=== PATIENT | male | born 1975 | race Two or more races ===

== ENCOUNTER 2020-06-03 09:38 | Outpatient (REF) | payer OTHER, SELFPAY ==
[2020-06-03 10:30] LABS: COVID-19 Test Negative (Negative)
== END 2020-06-03 09:39 | disposition home or self-care (01) ==
LOC: HO.LAB 09:38
PROVIDERS: PCP Nurse Practitioner Family; Visit Provider Internal Medicine
DX: Z20.828 Contact with and (suspected) exposure to other viral communicable diseases (principal)
CPT/HCPCS: 87635; C9803

== ENCOUNTER → 2020-07-21 09:09 | Outpatient (BNVA) | payer OTHER, SELFPAY | PROVIDERS: PCP Nurse Practitioner Family; Referring Provider Nurse Practitioner Family; Visit Provider Psychiatry & Neurology Neurology | DX: Z76.89 Persons encountering health services in other specified circumstances (principal) ==

== ENCOUNTER → 2020-08-18 09:49 | Outpatient (BNVA) | payer OTHER, SELFPAY | PROVIDERS: PCP Nurse Practitioner Family; Visit Provider Internal Medicine ==

== ENCOUNTER 2020-08-31 13:11 | Outpatient (REF) | payer OTHER, SELFPAY ==
--- NOTE | ~2020-08-31 | CT_ITS ---
EXAMINATION: CT CHEST WITHOUT CONTRAST CLINICAL INFORMATION: Sarcoidosis COMPARISON: Previous chest CT December 2018 TECHNIQUE: Multidetector volumetric CT imaging of the chest was done. Axial MIP volume rendering provided. Sagittal and coronal reformatted images were obtained. This CT examination was performed using dose optimization techniques as appropriate, variously including the following: *Automated exposure control *Adjustment of mA and/or kV according to patient size (this includes techniques or standardized protocols for targeted exams where dose is matched to indication/reason for exam; i.e. 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 Largest pulmonary nodule is irregularly-shaped in the left upper lobe and measures 1.6 x 3 cm axial image 282 series 7 and 6 cm in longitudinal dimension coronal reconstructed image 43 compared to 1.4 x 2.4 x 5 cm May 2019 exam. MEDIASTINUM: There is mediastinal and bilateral hilar lymphadenopathy. This does not appear appreciably changed. Largest mediastinal lymph node is a right pretracheal lymph node measuring 1.6 x 2 cm, right precarinal lymph node measuring 1.3 x 2.2 cm and subcarinal lymph node measuring 1.6 x 3 cm. The heart does not appear enlarged. There is no pericardial effusion. There is no coronary artery calcification. The thoracic aorta is normal in caliber. The visualized thyroid gland is unremarkable. PLEURA: There is no pleural effusion. No pleural mass or thickening. AXILLA: No lymphadenopathy. UPPER ABDOMEN: There is a large left renal cyst that is partially visualized measuring at least 7.7 x 9 cm OSSEOUS STRUCTURES: Unremarkable. CT/CT chest wo con IMPRESSION: Interval increase in size and number of bilateral pulmonary nodules. Diffuse hilar and mediastinal lymphadenopathy not appreciably changed. Largest left renal cyst.
== END 2020-08-31 13:12 | disposition home or self-care (01) ==
LOC: HO.CT 13:11
PROVIDERS: PCP Nurse Practitioner Family; Visit Provider Internal Medicine
DX: D86.9 Sarcoidosis, unspecified (principal); R59.0 Localized enlarged lymph nodes
CPT/HCPCS: 71250

== ENCOUNTER 2020-10-07 07:33 | Outpatient (REF) | payer OTHER, SELFPAY ==
[2020-10-07 08:45] LABS: MANUAL DIFF FLAG NO
[2020-10-07 08:52] LABS: Basophils Percent Auto 0.3 % (0-2); Eosinophils Absolute Auto 1.2 X10*3/uL (0.0-0.4); Eosinophils Percent Auto 15.3 % (0-4); Hematocrit 46.6 % (42-52); Hemoglobin 15.6 g/dl (14.0-18.0); Imm Gran Abs Auto 0.05 X10*3/uL (0.00-0.03); Imm Gran Pct Auto 0.6 % (0.0-0.4); Lymphocytes Absolute Auto 2.4 X10*3/uL (1.2-4.9); Lymphocytes Percent Auto 30.2 % (20-40); Mean Corpuscular HGB Conc 33.5 g/dl (31.0-36.0); Mean Corpuscular Hemoglobin 30.9 pg (27.0-33.0); Mean Corpuscular Volume 92.3 fL (80-98); Mean Platelet Volume 9.5 fL (9.4-12.4); Monocytes Absolute Auto 0.8 X10*3/uL (0.1-1.2); Monocytes Percent Auto 9.6 % (2-11); Neutrophils Absolute Auto 3.5 X10*3/uL (2.0-8.3); Platelet Count 250 X10*3/uL (160-400); Red Blood Count 5.05 X10*6/uL (4.60-5.80); Red Cell Distribution Width 12.1 % (11.0-16.0); White Blood Count 7.9 X10*3/uL (4.8-10.8)
[2020-10-07 09:11] LABS: Alanine Aminotransferase 53 U/L (0-40); Albumin Level 4.5 g/dL (3.5-5.0); Alkaline Phosphatase 58 U/L (39-117); Anion Gap 15 (12-20); Aspartate Amino Transferase 35 U/L (5-37); Bilirubin Total 0.6 mg/dL (0.0-1.0); Blood Urea Nitrogen 19 mg/dL (9-16); Calcium 9.6 mg/dL (8.4-10.2); Carbon Dioxide 26 mmol/L (22-29); Chloride 106 mmol/L (96-108); Estimated Glomerular Filt Rate > 60; Glucose Random 77 mg/dL (60-115); Potassium 4.6 mmol/L (3.3-5.1); Sodium 142 mmol/L (135-145); Total Protein 7.8 g/dL (6.5-8.0)
== END 2020-10-07 07:34 | disposition home or self-care (01) ==
LOC: HO.LAB 07:33
PROVIDERS: PCP Nurse Practitioner Family; Visit Provider Nurse Practitioner Family
DX: L30.9 Dermatitis, unspecified (principal)
CPT/HCPCS: 36415; 80053; 85025

== ENCOUNTER 2020-12-28 14:22 | Emergency (ER) | payer OTHER, SELFPAY ==
--- NOTE | ~2020-12-28 | CT_ITS ---
EXAMINATION: CT ABDOMEN AND PELVIS WITH CONTRAST CLINICAL INFORMATION: Left flank/lower abdominal pain COMPARISON: CT chest 08/31/2020 Renal ultrasound 02/20/2020, CT abdomen pelvis 11/09/2017 TECHNIQUE: Multidetector volumetric images were obtained from the superior aspect of the liver through the pubic symphysis following administration 85 mL of Omnipaque 350 intravenous contrast. Sagittal and coronal reformatted images were obtained on the technologist's workstation. Oral contrast: No This CT examination was performed using dose optimization techniques as appropriate, variously including the following: *Automated exposure control *Adjustment of mA and/or kV according to patient size (this includes techniques or standardized protocols for targeted exams where dose is matched to indication/reason for exam; i.e. extremities or head) *Use of iterative reconstruction technique DLP: 594 mGy-cm FINDINGS: LUNG BASES: Some noia-ok-oie-type changes are present at the lung bases (4:2). Some small nodules are present at the right lung base the largest 5 mm (4:107). A lingular 8 mm pleural-based nodule is present (4:53). When compared to the 08/31/2020 study there's been no significant interval change. LIVER, GALLBLADDER, AND BILIARY TREE: The liver is normal in size, shape, and attenuation. Tiny barely perceptible hepatic hypodensities are seen, most likely cysts, but indeterminate. Hypoechoic region adjacent to the falciform ligament is not a worrisome finding. No suspicious focal hepatic lesion or biliary ductal dilatation is present. The gallbladder is unremarkable with no evidence of radiopaque gallstones, gallbladder wall thickening, or obvious pericholecystic inflammatory changes. PANCREAS: Unremarkable. SPLEEN: Unremarkable. ADRENAL GLANDS: Unremarkable. KIDNEYS AND URETERS: The kidneys are normal in size, shape, and attenuation. No hydronephrosis or hydroureter. Previously seen obstructing the left proximal ureteral stone is no longer present. Bilateral nonobstructing renal calculi are present. There are 4 on the right with the largest measuring 5 mm in size. On the left, 2 adjacent 2 mm calculi are seen. Again noted are bilateral renal cysts which have increased in size with the largest on the right measuring 2.7 cm. No perinephric stranding. BLADDER: Unremarkable. GASTROINTESTINAL TRACT: There are moderately extensive colonic diverticula without diverticulitis. The small and large bowel are otherwise unremarkable. The appendix is unremarkable. ABDOMINAL WALL: No significant hernia is appreciated. LYMPH NODES: Retroperitoneal lymphadenopathy is seen with the largest node in the left para-aortic region measuring 2.3 x 2.0 x 4.4 cm (4:298). In 2018, this node measured 1.1 x 1.0 cm. Other lymph nodes are also present including aortocaval nodes and iesha hepatis, gastrohepatic ligament and periceliac lymph nodes which have also increased in size. VASCULAR: Unremarkable. PELVIC VISCERA: A statement seminal vesicles unremarkable. OSSEOUS STRUCTURES: Unremarkable. CT/CT abdomen pelvis w con IMPRESSION: 1. Stable pulmonary nodules. 2. Bilateral nonobstructing renal calculi and renal cysts. 3. Increasing retroperitoneal lymphadenopathy 4. Colonic diverticular changes without diverticulitis 5. An acute cause for the patient's left flank/lower abdominal pain has not been found.
[2020-12-28 14:24] VITALS: BP 155/102; PULSE 79; RESP 18; TEMP 36.6; O2SAT 99; BMI 28.0
--- NOTE | 2020-12-28 15:23 | ED.ABDPAIN ---
HPI - Abdominal Pain General Chief Complaint: Abdominal Pain Stated Complaint: kidney stones Time Seen by Provider: 12/28/20 15:14 Source: patient Mode of arrival: ambulatory Limitations: no limitations History of Present Illness HPI narrative: Min patient presents to the for left lower abdominal left flank pain since last night. Patient states history of multiple kidney stones. Patient was sent by his urologist to be evaluated. Patient denies any dysuria, hematuria, testicular pain, nausea, or vomiting. Patient states no fever or chills. patient denies any recent trauma MD elicited complaint: abdominal pain Related Data Home Medications Medication Instructions Recorded Confirmed pyridoxine (vitamin B6) 100 mg 100 mg PO DAILY 05/26/20 12/28/20 tablet flu vac qs 2018(4 yr up)CD(PF) ml IM 08/18/20 12/08/20 hepatitis A virus vaccine (PF) 50 ml IM ONCE 08/18/20 12/08/20 unit/mL intramuscular syringe fexofenadine 60 mg tablet 60 mg PO BID 12/08/20 12/28/20 glucosamine-chondroitin 500 mg-400 1 tab PO DAILY 12/28/20 12/28/20 mg tablet ipratropium bromide 21 mcg (0.03 INTRANASAL 12/28/20 12/28/20 %) nasal spray Previous Rx's Medication Instructions Recorded zolpidem 10 mg tablet 10 mg PO BEDTIME 30 Days #30 tab 10/12/20 omeprazole 20 mg capsule,delayed 20 mg PO DAILY #30 cap 11/05/20 release potassium citrate 10 mEq (1,080 20 meq PO BID 90 Days #360 tab 11/09/20 mg) tablet,extended release ibuprofen 600 mg tablet 600 mg PO TID #90 tab 12/28/20 naproxen 500 mg PO BID PRN #20 tab 12/28/20 tamsulosin [Flomax] 0.4 mg PO DAILY 7 Days #7 cap 12/28/20 Allergies Allergy/AdvReac Type Severity Reaction Status Date / Time morphine [MORPHINE] AdvReac Intermediate NAUSEA & Verified 12/28/20 13:02 VOMITING, Vomiting, nausea Review of Systems Review of Systems Yes all other systems are reviewed and are negative Constitutional: Reports as per HPI and Reports no additional constitutional complaints Eyes: Reports as per HPI and Reports no additional eye complaints Reports system reviewed and no additional complaints, except as documented and Reports as per HPI Cardiovascular: Reports as per HPI and Reports no additional cardiovascular complaints Respiratory: Reports as per HPI and Reports no additional respiratory complaints Gastrointestinal: Reports as per HPI, Reports no additional gastrointestinal complaints and Reports abdominal pain (Left flank left lower abdominal pain) Genitourinary: Reports no additional male genitourinary complaints and Reports as per HPI Musculoskeletal: Reports no additional musculoskeletal complaints and Reports as per HPI Reports system reviewed and no additional complaints, except as documented and Reports as per HPI Psychiatric: Reports no additional psychiatric complaints and Reports as per HPI Physical Exam Vital Signs: Vital Signs: Last Vital Signs Temp 98.2 F 12/28/20 19:24 Pulse 62 12/28/20 19:24 Resp 18 12/28/20 19:24 BP 125/70 12/28/20 19:24 Pulse Ox 98 12/28/20 19:24 Body Mass Index 28.0 Const: General: cooperative, healthy appearing, comfortable, no acute distress, well developed, alert, awake and Physically active Orientation/consciousness: patient oriented x3 HENMT: Head: Yes normal to inspection, Yes No palpable skull fracture present, Yes normocephalic, Yes atraumatic and No abrasion Eyes: General: appearance normal, both eyes and all related structures Neck: Neck: Yes normal visual inspection, Yes full ROM, Yes no lymphadenopathy, Yes no meningeal signs, Yes trachea midline, Yes supple and No tender Chest: Chest palpation & inspection: normal inspection of the chest and abnormal palpation of chest wall Resp: Effort & Inspection: normal respiratory effort and able to speak in complete sentences Auscultation: clear to auscultation bilaterally Cardio: Jugular venous distension: no JVD Heart sounds: S1 normal heart sound present and S2 normal heart sound present GI: Inspection: Yes normal to inspection Palpation (GI): Soft to palpation, not firm, Tenderness to palpation present (GI) in the LLQ, no guarding and not rigid : General: No CVA tenderness and Yes no CVA tenderness Back/Spine/Pelvis: Back: no CVA tenderness, No CVA tenderness and No back tenderness Skin: General skin exam: no rashes or lesions noted and elasticity normal Neuro: General: patient oriented x3, gait normal, no meningeal signs and CN's II-XI intact bilaterally Cranial nerves: Yes CN's II-XII intact bilaterally Extrem: General: Yes normal to inspection and Yes full ROM Psych: Appearance: grossly normal, well kempt and not disheveled Course Course Course Narrative: Patient will have labs, IV fluids, Toradol, and possibly imaging done. Reevaluation(s) Reevaluation #1: CT scan came back for bilateral stones and were negative for ureteral stones. Negative for any acute abdominal etiology. Patient labs are baseline. Patient pain resolved with Toradol. UA negative for UTI. Patient made aware of CT scan of renal cyst and increaseds size retroperitoneal lymphadenopathy. Patient informed to follow-up with PCP. Time: 18:54 MDM - Abdominal Pain MDM Narrative Medical decision making narrative: Kidney stones. Lab Data Result diagrams: 12/28/20 15:41 12/28/20 15:41 Labs: Lab Results 12/28/20 12/28/20 12/28/20 Range/Units 15:41 15:41 15:41 WBC 5.1 (4.8-10.8) X10*3/uL RBC 4.78 (4.60-5.80) X10*6/uL Hgb 15.0 (14.0-18.0) g/dl Hct 44.3 (42-52) % MCV 92.7 (80-98) fL MCH 31.4 (27.0-33.0) pg MCHC 33.9 (31.0-36.0) g/dl RDW 11.9 (11.0-16.0) % Plt Count 194 (160-400) X10*3/uL MPV 9.1 L (9.4-12.4) fL Immature Gran % (Auto) 0.8 H (0.0-0.4) % Neut % (Auto) 51.3 (45-73) % Lymph % (Auto) 25.4 (20-40) % [place] % (Auto) 15.3 H (2-11) % Eos % (Auto) 6.8 H (0-4) % Baso % (Auto) 0.4 (0-2) % Lymph # (Auto) 1.3 (1.2-4.9) X10*3/uL [place] # (Auto) 0.8 (0.1-1.2) X10*3/uL Eos # (Auto) 0.4 (0.0-0.4) X10*3/uL Baso # (Auto) 0.0 (0.0-0.2) X10*3/uL Abs Immat Gran (auto) 0.04 H (0.00-0.03) X10*3/uL Absolute Neuts (auto) 2.6 (2.0-8.3) X10*3/uL Absolute Nucleated RBC 0.000 (0.0-0.012) X10*3/uL Nucleated RBC % (auto) 0.0 (0.0-0.2) /100WBC Sodium 141 (135-145) mmol/L Potassium 4.0 (3.3-5.1) mmol/L Chloride 106 (96-108) mmol/L Carbon Dioxide 27 (22-29) mmol/L Anion Gap 12 (12-20) BUN 9 D (9-16) mg/dL Creatinine 1.21 (0.5-1.4) mg/dL Estim Creat Clear Calc 85.6 Estimated GFR > 60 Random Glucose 80 (60-115) mg/dL Calcium 9.2 (8.4-10.2) mg/dL Total Bilirubin 0.6 0.6 (0.0-1.0) mg/dL Direct Bilirubin 0.2 (0.0-0.5) mg/dL AST 29 29 (5-37) U/L ALT 25 25 (0-40) U/L Alkaline Phosphatase 55 55 (39-117) U/L Total Protein 7.1 7.0 (6.5-8.0) g/dL Albumin 4.2 4.2 (3.5-5.0) g/dL Lipase 18 (8-78) U/L Urine Color Urine Appearance Urine pH (5.0-8.0) Ur Specific [place] (1.005-1.025) Urine Protein (NEG-TRACE) MG/DL Urine Glucose (UA) (NEG) MG/DL Urine Ketones (NEG) MG/DL Urine Blood (NEG) Urine Nitrite (NEG) Ur Leukocyte Esterase (NEG) 12/28/20 Range/Units 17:04 WBC (4.8-10.8) X10*3/uL RBC (4.60-5.80) X10*6/uL Hgb (14.0-18.0) g/dl Hct (42-52) % MCV (80-98) fL MCH (27.0-33.0) pg MCHC (31.0-36.0) g/dl RDW (11.0-16.0) % Plt Count (160-400) X10*3/uL MPV (9.4-12.4) fL Immature Gran % (Auto) (0.0-0.4) % Neut % (Auto) (45-73) % Lymph % (Auto) (20-40) % [place] % (Auto) (2-11) % Eos % (Auto) (0-4) % Baso % (Auto) (0-2) % Lymph # (Auto) (1.2-4.9) X10*3/uL [place] # (Auto) (0.1-1.2) X10*3/uL Eos # (Auto) (0.0-0.4) X10*3/uL Baso # (Auto) (0.0-0.2) X10*3/uL Abs Immat Gran (auto) (0.00-0.03) X10*3/uL Absolute Neuts (auto) (2.0-8.3) X10*3/uL Absolute Nucleated RBC (0.0-0.012) X10*3/uL Nucleated RBC % (auto) (0.0-0.2) /100WBC Sodium (135-145) mmol/L Potassium (3.3-5.1) mmol/L Chloride (96-108) mmol/L Carbon Dioxide (22-29) mmol/L Anion Gap (12-20) BUN (9-16) mg/dL Creatinine (0.5-1.4) mg/dL Estim Creat Clear Calc Estimated GFR Random Glucose (60-115) mg/dL Calcium (8.4-10.2) mg/dL Total Bilirubin (0.0-1.0) mg/dL Direct Bilirubin (0.0-0.5) mg/dL AST (5-37) U/L ALT (0-40) U/L Alkaline Phosphatase (39-117) U/L Total Protein (6.5-8.0) g/dL Albumin (3.5-5.0) g/dL Lipase (8-78) U/L Urine Color YELLOW Urine Appearance CLEAR Urine pH 6.0 (5.0-8.0) Ur Specific [place] <= 1.005 (1.005-1.025) Urine Protein NEG (NEG-TRACE) MG/DL Urine Glucose (UA) NEG (NEG) MG/DL Urine Ketones NEG (NEG) MG/DL Urine Blood NEG (NEG) Urine Nitrite NEG (NEG) Ur Leukocyte Esterase NEG (NEG) Discharge Plan Discharge Clinical Impression: Bilateral kidney stones Patient Disposition: Home, Self-Care Instructions: Kidney Stones (ED), Flank Pain (ED) Additional Instructions: Return to the ED immediately for worsening abdominal pain, flank pain, testicular pain, dysuria, hematuria, penile discharge, scrotal swelling, nausea, vomiting, inability to tolerate solid food/liquid, or any other concerning symptoms. To CT scan shows bilateral chronic kidney stones. CT scan also shows bilateral renal cysts. CT scan also so retroperitoneal lymphadenopathy. Please follow-up with the PCP make him aware of this. Please also follow-up with your urologist. Prescriptions: New naproxen 500 mg tablet 500 mg PO BID PRN (Reason: pain) Qty: 20 RF: 0 tamsulosin [Flomax] 0.4 mg capsule 0.4 mg PO DAILY 7 Days Qty: 7 RF: 0 No Action zolpidem 10 mg tablet 10 mg PO BEDTIME 30 Days Qty: 30 RF: 1 omeprazole 20 mg capsule,delayed release(DR/EC) 20 mg PO DAILY Qty: 30 RF: 4 potassium citrate 10 mEq (1,080 mg) tablet extended release 20 meq PO BID 90 Days Qty: 360 RF: 2 glucosamine-chondroitin 500-400 mg tablet 1 tab PO DAILY RF: 0 ibuprofen 600 mg tablet 600 mg PO TID Qty: 90 RF: 0 pyridoxine (vitamin B6) 100 mg tablet 100 mg PO DAILY RF: 0 fexofenadine [Purnima Allergy] 60 mg tablet 60 mg PO BID RF: 0 Vaqta (PF) 50 unit/mL syringe IM ONCE RF: 0 Flucelvax Quad [id number] (PF) 60 mcg (15 mcg x 4)/0.5 mL syringe IM RF: 0 ipratropium bromide 21 mcg (0.03 %) spray,non-aerosol intranasal RF: 0 Referrals: Carson Ozuna, INFORMATION TECHNOLOGY SECURITY ANALYST-BC [Primary Care Provider] - 2 days (CT scan shows bilateral chronic kidney stones. CT scan shows bilateral renal cysts. CT scan also shows increased retro peritoneal lymphadenopathy.) Stand Alone Forms: Work/School Release Print Language: Italian [facility] Past Medical History Medical History Kidney stones Mediastinal adenopathy Mediastinal lymphadenopathy Nasal fracture Pulmonary nodule Sarcoidosis Sarcoidosis Surgical History History of lithotripsy History of umbilical hernia repair Family History Family History Father Diabetes mellitus Stomach ulcer Mother Diabetes mellitus Brother No problems noted. Brother No problems noted. Sister No problems noted. Sister No problems noted. Sister No problems noted. Social History Social History Alcohol intake: never Patient Tobacco Use Status: Never used Tobacco Use of substances other than those prescribed or required for medical reasons: No Advance Directives: No Advance Directives Information Provided: No
[2020-12-28] MEDS: Ketorolac Tromethamine 30 MG/ML VIAL IVPUSH (15:42)
[2020-12-28] MEDS: 0.9 % Sodium Chloride 1,000 ML 999 ML IV (15:42)
[2020-12-28 15:45] VITALS: BP 138/85; PULSE 67; RESP 16; O2SAT 99
[2020-12-28 15:56] LABS: MANUAL DIFF FLAG NO
[2020-12-28 15:58] LABS: Basophils Percent Auto 0.4 % (0-2); Eosinophils Absolute Auto 0.4 X10*3/uL (0.0-0.4); Eosinophils Percent Auto 6.8 % (0-4); Hematocrit 44.3 % (42-52); Imm Gran Abs Auto 0.04 X10*3/uL (0.00-0.03); Imm Gran Pct Auto 0.8 % (0.0-0.4); Lymphocytes Absolute Auto 1.3 X10*3/uL (1.2-4.9); Lymphocytes Percent Auto 25.4 % (20-40); Mean Corpuscular HGB Conc 33.9 g/dl (31.0-36.0); Mean Corpuscular Hemoglobin 31.4 pg (27.0-33.0); Mean Corpuscular Volume 92.7 fL (80-98); Mean Platelet Volume 9.1 fL (9.4-12.4); Monocytes Absolute Auto 0.8 X10*3/uL (0.1-1.2); Monocytes Percent Auto 15.3 % (2-11); Neutrophils Absolute Auto 2.6 X10*3/uL (2.0-8.3); Neutrophils Percent Auto 51.3 % (45-73); Platelet Count 194 X10*3/uL (160-400); Red Blood Count 4.78 X10*6/uL (4.60-5.80); Red Cell Distribution Width 11.9 % (11.0-16.0); White Blood Count 5.1 X10*3/uL (4.8-10.8)
[2020-12-28 16:27] LABS: Alanine Aminotransferase 25 U/L (0-40); Albumin Level 4.2 g/dL (3.5-5.0); Alkaline Phosphatase 55 U/L (39-117); Anion Gap 12 (12-20); Aspartate Amino Transferase 29 U/L (5-37); Bilirubin Total 0.6 mg/dL (0.0-1.0); Blood Urea Nitrogen 9 mg/dL (9-16); Calcium 9.2 mg/dL (8.4-10.2); Carbon Dioxide 27 mmol/L (22-29); Chloride 106 mmol/L (96-108); Creatinine Clr Calc Pharmacy 85.6; Estimated Glomerular Filt Rate > 60; Glucose Random 80 mg/dL (60-115); Sodium 141 mmol/L (135-145); Total Protein 7.1 g/dL (6.5-8.0)
[2020-12-28 16:28] LABS: Alanine Aminotransferase 25 U/L (0-40); Albumin Level 4.2 g/dL (3.5-5.0); Alkaline Phosphatase 55 U/L (39-117); Aspartate Amino Transferase 29 U/L (5-37); Bilirubin Direct 0.2 mg/dL (0.0-0.5); Bilirubin Total 0.6 mg/dL (0.0-1.0); Lipase 18 U/L (8-78)
[2020-12-28 16:32] VITALS: BP 142/87; PULSE 57; RESP 16; O2SAT 98
[2020-12-28 17:10] LABS: Glucose Urine UA NEG (NEG); Leukocyte Esterase Urine NEG (NEG); Nitrite Urine NEG (NEG); Specific Gravity - Urine <= 1.005 (1.005-1.025); Urine Blood NEG (NEG); Urine Ketones NEG (NEG); Urine Protein NEG (NEG-TRACE)
[2020-12-28 17:11] LABS: Appearance Urine CLEAR; Color Urine YELLOW
[2020-12-28] MEDS: iohexoL 350 MG/ML 100 ML INFUS..BTL IV (18:00)
[2020-12-28 19:24] VITALS: BP 125/70; PULSE 62; RESP 18; TEMP 36.8; O2SAT 98
== END 2020-12-28 20:53 | disposition home or self-care (01) ==
PROVIDERS: Physician Assistant; Emergency Provider Emergency Medicine; PCP Nurse Practitioner Family
DX: N20.0 Calculus of kidney (principal)
CPT/HCPCS: 36415; 74177; 80053; 80076; 81003; 82248; 83690; 85025; 96361; 96374; 99284; J1885; Q9967

== ENCOUNTER → 2021-01-01 12:04 | Outpatient (BNVA) | payer OTHER, SELFPAY | PROVIDERS: PCP Nurse Practitioner Family; Visit Provider Urology ==

== ENCOUNTER 2021-01-15 10:51 | Day surgery (SDC) | payer OTHER, SELFPAY ==
--- NOTE | ~2021-01-15 | CT_ITS ---
PROCEDURE: CT GUIDED DRAINAGE, RETROPERITONEAL ABSCESS CLINICAL INFORMATION: Left sided pain. COMPARISON: Previous CT scans of the abdomen and pelvis most recent December 2020 and renal ultrasound February 2020 TECHNIQUE: Procedure and risks and benefits including bleeding, infection, injury to the kidney and pneumothorax were discussed with the patient and informed consent was obtained. The patient was positioned in the right decubitus position. Limited images through the left kidney were performed. The left back was prepped and draped in usual sterile fashion. The skin and soft tissues were anesthetized with 1% lidocaine plain. Using CT guidance and a 5 [place] rapid catheter, access to the left renal cyst was obtained. 350 mL of clear yellow fluid was removed. Specimen was sent for Gram stain, culture and cytology. Patient received Versed 2 mg and fentanyl 50 mcg intravenously during the procedure. Total sedation time was [address] examination was performed using dose optimization techniques as appropriate, variously including the following: *Automated exposure control *Adjustment of mA and/or kV according to patient size (this includes techniques or standardized protocols for targeted exams where dose is matched to indication/reason for exam; i.e. extremities or head) *Use of iterative reconstruction technique DLP: 140 mGy-cm FINDINGS: There is an 8 x 8.5 x 10 cm left renal cyst that was targeted for aspiration. Postprocedure images demonstrate decreased in size in the cyst measuring 4.5 x 3 x 2 cm. There are bilateral stones, right greater than left. There are small right renal cysts. CT/CT guided needle placement IMPRESSION: CT-guided left renal cyst aspiration.
--- NOTE | ~2021-01-15 | CT_ITS ---
PROCEDURE: CT GUIDED DRAINAGE, RETROPERITONEAL ABSCESS CLINICAL INFORMATION: Left sided pain. COMPARISON: Previous CT scans of the abdomen and pelvis most recent December 2020 and renal ultrasound February 2020 TECHNIQUE: Procedure and risks and benefits including bleeding, infection, injury to the kidney and pneumothorax were discussed with the patient and informed consent was obtained. The patient was positioned in the right decubitus position. Limited images through the left kidney were performed. The left back was prepped and draped in usual sterile fashion. The skin and soft tissues were anesthetized with 1% lidocaine plain. Using CT guidance and a 5 Khmer rapid catheter, access to the left renal cyst was obtained. 350 mL of clear yellow fluid was removed. Specimen was sent for Gram stain, culture and cytology. Patient received Versed 2 mg and fentanyl 50 mcg intravenously during the procedure. Total sedation time was [address] examination was performed using dose optimization techniques as appropriate, variously including the following: *Automated exposure control *Adjustment of mA and/or kV according to patient size (this includes techniques or standardized protocols for targeted exams where dose is matched to indication/reason for exam; i.e. extremities or head) *Use of iterative reconstruction technique DLP: 140 mGy-cm FINDINGS: There is an 8 x 8.5 x 10 cm left renal cyst that was targeted for aspiration. Postprocedure images demonstrate decreased in size in the cyst measuring 4.5 x 3 x 2 cm. There are bilateral stones, right greater than left. There are small right renal cysts. CT/CT guided aspiration renal IMPRESSION: CT-guided left renal cyst aspiration.
[2021-01-15 11:15] VITALS: BMI 28.0
[2021-01-15 11:35] LABS: MANUAL DIFF FLAG NO
[2021-01-15 11:43] LABS: Basophils Percent Auto 0.6 % (0-2); Eosinophils Absolute Auto 0.7 X10*3/uL (0.0-0.4); Eosinophils Percent Auto 13.8 % (0-4); Hematocrit 45.2 % (42-52); Hemoglobin 15.7 g/dl (14.0-18.0); Imm Gran Abs Auto 0.06 X10*3/uL (0.00-0.03); Imm Gran Pct Auto 1.3 % (0.0-0.4); Lymphocytes Absolute Auto 1.3 X10*3/uL (1.2-4.9); Lymphocytes Percent Auto 27.1 % (20-40); Mean Corpuscular HGB Conc 34.7 g/dl (31.0-36.0); Mean Corpuscular Hemoglobin 31.7 pg (27.0-33.0); Mean Corpuscular Volume 91.1 fL (80-98); Mean Platelet Volume 9.2 fL (9.4-12.4); Monocytes Absolute Auto 0.6 X10*3/uL (0.1-1.2); Monocytes Percent Auto 12.9 % (2-11); Neutrophils Absolute Auto 2.1 X10*3/uL (2.0-8.3); Neutrophils Percent Auto 44.3 % (45-73); Platelet Count 215 X10*3/uL (160-400); Red Blood Count 4.96 X10*6/uL (4.60-5.80); White Blood Count 4.7 X10*3/uL (4.8-10.8)
[2021-01-15 11:47] LABS: Prothrombin Time 11.6 SEC (9.9-13.0)
[2021-01-15 11:50] LABS: Partial Thromboplastin Time 31.9 SEC (24.1-38.0)
[2021-01-15 13:05] VITALS: BP 128/86; PULSE 60; RESP 14; TEMP 36.5; O2SAT 96
[2021-01-15] MEDS: Lidocaine HCl 1 % MPF 5 ML VIAL SUBCUT (13:05)
--- NOTE | 2021-01-15 13:06 | HO.RADPN ---
RADIOLOGY Narrative Narrative: Left renal cyst aspiration using 5 fr catheter. 350 ml clear yellow fluid removed. specimen sent for cytology and gram stain and culture
[2021-01-15 13:20] VITALS: BP 114/78; PULSE 72; RESP 16; O2SAT 96
[2021-01-15 13:35] VITALS: BP 117/78; PULSE 70; RESP 16; O2SAT 98
[2021-01-15 14:03] VITALS: BP 124/75; PULSE 65; RESP 16; O2SAT 98
== END 2021-01-15 14:09 | disposition home or self-care (01) ==
PROVIDERS: Radiology Diagnostic Radiology; PCP Nurse Practitioner Family; Visit Provider Radiology Diagnostic Radiology
DX: N28.1 Cyst of kidney, acquired (principal)
CPT/HCPCS: 10009; 36415; 77012; 85025; 85610; 85730; 87071; 87073; 87205; 88112; 99152; J2250; J3010

== ENCOUNTER 2021-02-04 16:15 | Outpatient (REF) | payer OTHER, SELFPAY ==
--- NOTE | ~2021-02-04 | XR_ITS ---
EXAMINATION: XR LUMBOSACRAL SPINE CLINICAL INFORMATION: Low back pain COMPARISON: None TECHNIQUE: Three views of the lumbosacral spine. FINDINGS: There is normal lumbar lordosis. The vertebral heights, alignment and disc heights are normal. There is mild right L4-L5 facet joint arthropathy. No acute fracture, dislocation or lytic process seen. The soft tissues are normal. XR/XR lumbar spine 2-3V IMPRESSION: Mild right L4-L5 facet joint arthropathy. No visible acute fracture, dislocation or lytic process seen.
== END 2021-02-04 16:16 | disposition home or self-care (01) ==
LOC: HO.HMGCX 16:15
PROVIDERS: PCP Nurse Practitioner Family; Visit Provider Nurse Practitioner Family
DX: M54.5 Low back pain (principal)
CPT/HCPCS: 72100

== ENCOUNTER 2021-02-10 08:21 | Outpatient (REF) | payer OTHER, SELFPAY ==
--- NOTE | ~2021-02-10 | US_ITS ---
EXAMINATION: US RETROPERITONEAL LIMITED (RENAL ONLY) CLINICAL INFORMATION: Cyst of the kidney. COMPARISON: CT abdomen and pelvis 12/28/2020. Ultrasound renal 02/20/2020 and 02/19/2019. X-ray KUB 12/23/2015 and 12/16/2015. TECHNIQUE: Real-time imaging of the kidneys. FINDINGS: RIGHT KIDNEY: 12.8 x 5.6 x 6.2 cm (SAG x AP x TRV). The kidney is normal in size, contour, and echogenicity. Renal cortical thickness is normal. No renal hydronephrosis. There are multiple right renal cysts. There are 2 lower pole cyst measuring 2.9 x 2.8 x 2.6 cm and 1.0 x 1.7 x 1.1 cm. Midpole cyst measures 0.8 x 0.8 x 0.7 cm. There is an echogenic stone in the upper pole measuring 0.3 x 0.2 x 0.3 cm and echogenic stone lower pole measuring 0.4 x 0.3 x 0.4 cm. There is no caliectasis or hydronephrosis. LEFT KIDNEY: 11.8 x 5.0 x 4.6 cm (SAG x AP x TRV). The kidney is normal in size, contour, and echogenicity. Renal cortical thickness is normal. No renal hydronephrosis. There are 4 anechoic cyst. A upper pole cyst measuring 5.6 x 4.7 x 5.1 cm which is undergone fine-needle aspiration. A second cyst in the upper pole measures 0.7 x 0.7 x 0.7 cm. In midpole cyst measures 1.4 x 2.0 x 1.2 cm and lower pole cyst measures 1.9 x 2.2 x 2.5 cm. There is an echogenic stone in lower pole measuring 0.2 x 0.3 x 0.2 cm. There is mild pelvic caliectasis/hydronephrosis US/US renal BI IMPRESSION: Bilateral renal cyst. Bilat. nonobstructive echogenic renal calculi. Mild left hydronephrosis.
== END 2021-02-10 08:22 | disposition home or self-care (01) ==
LOC: HO.US 08:21
PROVIDERS: Visit Provider Urology
DX: N28.1 Cyst of kidney, acquired (principal)
CPT/HCPCS: 76775

== ENCOUNTER → 2021-03-03 09:39 | Outpatient (BNVA) | payer OTHER, SELFPAY | PROVIDERS: PCP Nurse Practitioner Family; Visit Provider Urology | DX: N28.1 Cyst of kidney, acquired (principal) ==

== ENCOUNTER 2021-07-14 10:10 | Outpatient (REF) | payer OTHER, SELFPAY ==
[2021-07-14 11:25] LABS: Appearance Urine CLEAR; Color Urine YELLOW; Glucose Urine UA NEG (NEG); Leukocyte Esterase Urine NEG (NEG); Nitrite Urine NEG (NEG); Specific Gravity - Urine 1.015 (1.005-1.025); Urine Blood NEG (NEG); Urine Ketones NEG (NEG); Urine Protein NEG (NEG-TRACE)
[2021-07-14 11:37] LABS: RBC Urine 0-2 /HPF (0); WBC Urine 0 /HPF (0-4)
[2021-07-14 12:57] LABS: CT PCR NOT DETECTED (Not Detect.)
[2021-07-14 12:58] LABS: NG PCR NOT DETECTED (Not Detect.)
== END 2021-07-14 10:11 | disposition home or self-care (01) ==
LOC: HO.HMGCLDS 10:10
PROVIDERS: PCP Nurse Practitioner Family; Visit Provider Nurse Practitioner Family
DX: R30.0 Dysuria (principal)
CPT/HCPCS: 81001; 87086; 87491; 87591

== ENCOUNTER 2021-08-02 08:03 | Outpatient (REF) | payer OTHER, SELFPAY ==
--- NOTE | ~2021-08-02 | US_ITS ---
EXAMINATION: US RETROPERITONEAL LIMITED (RENAL ONLY) CLINICAL INFORMATION: Calculus of kidney. COMPARISON: Renal ultrasound 02/10/2021 and 02/20/2020. CT abdomen and pelvis without contrast 11/09/2017. KUB 12/23/2015 and 12/16/2015. TECHNIQUE: Real-time imaging of the kidneys. FINDINGS: RIGHT KIDNEY: 12.5 x 6.2 x 6.0 cm (SAG x AP x TRV). The kidney is normal in size, contour, and echogenicity. Renal cortical thickness is normal. No hydronephrosis. There are 5 anechoic cyst. The largest cyst lower pole measures 3.2 x 2.6 x 2.4 cm. There are 2 echogenic stones measuring 0.2 x 0.2 cm and 0.4 x 0.3 cm in midpole. There is no caliectasis seen. LEFT KIDNEY: 11.6 x 5.2 x 6.0 cm (SAG x AP x TRV). The kidney is normal in size, contour, and echogenicity. Renal cortical thickness is normal. No hydronephrosis. There are 5 anechoic cysts seen. The largest cyst in the upper pole measures 7.5 x 7.1 x 8.3 cm. There are 4 echogenic stones largest in the midpole measures 0.3 x 0.2 cm. There is no caliectasis or hydronephrosis. US/US renal BI IMPRESSION: Bilateral multiple simple renal cysts. Bilateral nonobstructive echogenic small calculi. There is no hydronephrosis.
== END 2021-08-02 08:04 | disposition home or self-care (01) ==
LOC: HO.US 08:03
PROVIDERS: Visit Provider Urology
DX: N20.0 Calculus of kidney (principal); N28.1 Cyst of kidney, acquired
CPT/HCPCS: 76775

== ENCOUNTER → 2021-08-11 15:07 | Outpatient (BNVA) | payer OTHER, SELFPAY | PROVIDERS: PCP Nurse Practitioner Family; Visit Provider Urology ==

== ENCOUNTER → 2021-08-18 15:00 | Outpatient (BNVA) | payer OTHER, SELFPAY | PROVIDERS: PCP Nurse Practitioner Family; Visit Provider Internal Medicine ==

== ENCOUNTER → 2021-08-27 11:22 | Outpatient (BNVA) | payer OTHER, SELFPAY | PROVIDERS: PCP Nurse Practitioner Family; Visit Provider Urology ==

== ENCOUNTER 2021-09-06 11:00 | Outpatient (RCR) | payer OTHER, SELFPAY ==
--- NOTE | 2021-08-19 15:56 | MHC.PT.EP ---
[facility] [place] [facility] [place] [facility] [place] Office [address] Eric Chin [address] [phone] F: [phone] F: [phone] F: [phone] F: [phone] Physical Therapy Plan of Care Date of Evaluation: Date of Surgery: Diagnosis: LBP Assessment: 45 y/o male referred to PT with LBP. 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 Of note, PMH significant for sarcoidosis and umbilical hernia repair. Examination shows decreased lumbar AROM, decreased ITB/hip flexor/HS/and quad length, decreased strength of hip extensors/abductions/HS, poor frontal plane control with lunges, and increased pain. Recommend PT 1x/week for 5 weeks to address impairments, implement HEP, and optimize functional mobility. Frequency and Duration: The patient will be seen 1x/week for 5 weeks Short Term Goals: 3 weeks 1. COmpliance with HEP 2. Improve B hip flexor length to neutral (IR lacks 15*_ Nursing Home Goals: 5 weeks 1. I with HEP and self management of sx 2. Demonstrate control of frontal plane with SL and split stance activities with pain < 3/10 3. Pt will be able to lift 40# with proper mechanics from ground to umbilicus with pain < 3/10 Treatment Plan: Modalities to reduce pain, spasms and effusion. Manual therapy to restore motion and function. Therapeutic exercise to improve strength and flexibility. Neuromuscular re-education for posture and balance. Therapeutic activities to return to functional activities of daily living. Electronically signed by: Mercedes Morse PT Please sign and return to therapist. Thank you for your referral.
--- NOTE | 2021-10-12 11:28 | MHC.PT.DC ---
[facility] [place] Office [place] Office [place] Office [address] Eric Chin [address] [phone] F: [phone] F: [phone] F: [phone] F: [phone] Physical Therapy Discharge Report Diagnosis: LBP Date of Surgery: Date of Evaluation: 08/19/21 Date of Discharge: 10/12/21 Treatments to Date: 3 Cancellations to Date: 1 No Shows to Date: 1 Discharge Status: Improved Function Independent with HEP Visit Non-compliance Discharge Summary: Pt did not f/u with further visit. However he was making good progress with strengthening, decreased pain levels, and improved body mechanics. Electronically signed by: Mercedes Morse PT Please sign and return to therapist. Thank you for your referral.
== END 2021-10-12 11:28 | disposition home or self-care (01) ==
LOC: HO.PT 11:00
PROVIDERS: PCP Nurse Practitioner Family; Visit Provider Nurse Practitioner Family
DX: M54.50 Low back pain, unspecified (principal)
CPT/HCPCS: 97110; 97161; 97530

== ENCOUNTER 2021-09-08 13:12 | Outpatient (REF) | payer OTHER, SELFPAY ==
--- NOTE | ~2021-09-08 | CT_ITS ---
EXAMINATION: CT CHEST WITHOUT CONTRAST CLINICAL INFORMATION: Enlarged lymph nodes COMPARISON: Previous chest CT most recent August 2020 TECHNIQUE: Multidetector volumetric CT imaging of the chest was done. Axial MIP volume rendering provided. Sagittal and coronal reformatted images were obtained. This CT examination was performed using dose optimization techniques as appropriate, variously including the following: *Automated exposure control *Adjustment of mA and/or kV according to patient size (this includes techniques or standardized protocols for targeted exams where dose is matched to indication/reason for exam; i.e. extremities or head) *Use of iterative reconstruction technique DLP: 158 mGy-cm FINDINGS: LUNGS: There are innumerable bilateral pulmonary nodules. There are new small pulmonary nodules in the upper lobes. Larger pulmonary nodules appear stable. Largest pulmonary nodule measures 1.7 x 2.7 cm in the left upper lobe axial image 26 series 3. MEDIASTINUM: There is interval decrease in mediastinal lymphadenopathy. Largest lymph node is a right paratracheal lymph node measuring 1.2 x 2 cm axial image 16 series compared to 1.6 x 2.6 cm and subcarinal lymph node measuring 1.2 cm in short axis axial image 25 series compared to 1.6 cm. Evaluation for hilar adenopathy is limited without contrast. The mediastinum is otherwise normal. PLEURA: There is no pleural effusion. No pleural mass or thickening. AXILLA: There are small left axillary lymph nodes that are stable. No enlarged axillary lymph nodes or chest wall mass is seen. UPPER ABDOMEN: There is a 9 cm cyst in the upper pole of the left kidney that appears stable. There are small right renal stones. There is diverticulosis of the colon. OSSEOUS STRUCTURES: Unremarkable. CT/CT chest wo con IMPRESSION: Innumerable bilateral pulmonary nodules. There is interval increase in number of small pulmonary nodules particularly in the bilateral upper lobes. Largest pulmonary nodules are stable. Interval decrease in mediastinal lymphadenopathy. Fleischner guidelines were followed.
== END 2021-09-08 13:13 | disposition home or self-care (01) ==
LOC: HO.CT 13:12
PROVIDERS: PCP Nurse Practitioner Family; Visit Provider Internal Medicine
DX: R59.0 Localized enlarged lymph nodes (principal); D86.9 Sarcoidosis, unspecified; R91.8 Other nonspecific abnormal finding of lung field
CPT/HCPCS: 71250

== ENCOUNTER 2021-09-13 14:52 | Outpatient (REF) | payer OTHER, SELFPAY ==
--- NOTE | 2021-09-13 17:15 | PFT_ITS ---
Forced vital capacity 87%, FEV1 85%. FEV1/FVC ratio is 78. FEF 25-75 79% and MVV 94%. All these numbers are in normal range. Post bronchodilator therapy, there is no change. Total lung capacity 89% and residual volume 88%. Diffusion capacity 93%. CONCLUSION: 1. Normal pulmonary function test. 2. No evidence of obstructive or restrictive pulmonary disorder. MD JACKIE Elizabeth/MODL / [id number]
== END 2021-09-13 14:53 | disposition home or self-care (01) ==
LOC: HO.RESP 14:52
PROVIDERS: PCP Nurse Practitioner Family; Visit Provider Internal Medicine
DX: R59.0 Localized enlarged lymph nodes (principal); D86.9 Sarcoidosis, unspecified
CPT/HCPCS: 94060; 94727; 94729

== ENCOUNTER 2021-09-21 13:31 | Outpatient (REF) | payer OTHER, SELFPAY ==
--- NOTE | ~2021-09-21 | CT_ITS ---
EXAMINATION: CT ABDOMEN WITHOUT CONTRAST CLINICAL INFORMATION: Kidney cyst COMPARISON: Previous abdominal and pelvic CT December 2020, CT guided renal cyst aspiration January [address] from earlier this month TECHNIQUE: Contiguous axial thin section helical images of the abdomen were performed without contrast. The data set was reformatted in the coronal and sagittal planes and reviewed on an independent workstation. This CT examination was performed using dose optimization techniques as appropriate, variously including the following: *Automated exposure control *Adjustment of mA and/or kV according to patient size (this includes techniques or standardized protocols for targeted exams where dose is matched to indication/reason for exam; i.e. extremities or head) *Use of iterative reconstruction technique DLP: 343 mGy-cm FINDINGS: LUNG BASES: There are innumerable bilateral pulmonary nodules. Better evaluated on recent chest CT. LIVER, GALLBLADDER, BILIARY TREE: Unremarkable PANCREAS: Unremarkable SPLEEN: The spleen is slightly enlarged measuring 14 cm in length. ADRENAL GLANDS AND KIDNEYS: The adrenal glands are normal. There is a large 7.5 x 8.5 cm cyst exophytic to the upper pole of the left kidney. This has reaccumulated since CT-guided cyst aspiration January 2021. There are smaller bilateral simple cyst. There are small bilateral renal stones. No hydronephrosis. BOWEL LOOPS: There is diverticulosis of the colon. LYMPH NODES: There are enlarged retroperitoneal lymph nodes. Largest lymph node is a left periaortic lymph node measuring 2 cm in short axis. This does not appear appreciably changed from previous exam. VASCULAR: Unremarkable. BONES: Unremarkable CT/CT abdomen wo con IMPRESSION: Reaccumulated now 7.5 x 8.5 cm cyst exophytic to the upper pole of the left kidney. Multiple smaller bilateral renal cysts. Small bilateral renal stones. Slightly enlarged spleen. Enlarged retroperitoneal lymph nodes. Diverticulosis of the colon. Bibasilar pulmonary nodules. Fleischner guidelines were followed.
== END 2021-09-21 13:32 | disposition home or self-care (01) ==
LOC: HO.CT 13:31
PROVIDERS: Visit Provider Urology
DX: N28.1 Cyst of kidney, acquired (principal)
CPT/HCPCS: 74150

== ENCOUNTER → 2021-09-24 15:28 | Outpatient (BNVA) | payer OTHER, SELFPAY | PROVIDERS: PCP Nurse Practitioner Family; Visit Provider Urology | DX: Z13.89 Encounter for screening for other disorder (principal) ==

== ENCOUNTER → 2021-09-27 15:59 | Outpatient (BNVA) | payer OTHER, SELFPAY | PROVIDERS: PCP Nurse Practitioner Family; Visit Provider Internal Medicine | DX: D86.9 Sarcoidosis, unspecified (principal); R59.0 Localized enlarged lymph nodes; R91.1 Solitary pulmonary nodule; Z79.899 Other long term (current) drug therapy ==

== ENCOUNTER → 2021-11-04 11:12 | Outpatient (BNVA) | payer OTHER, SELFPAY | PROVIDERS: PCP Nurse Practitioner Family; Visit Provider Urology | DX: Z13.89 Encounter for screening for other disorder (principal) ==

== ENCOUNTER 2021-11-15 06:35 | Day surgery (SDC) | payer OTHER, SELFPAY ==
[2021-11-15] VITALS (13 sets, daily range): BP systolic 119–174; BP diastolic 80–102; PULSE 44–57; RESP 12–18; TEMP 36.1–36.2; O2SAT 96–100; BMI 26.6
--- NOTE | 2021-11-15 07:21 | P.CONAN_ITS ---
[facility] Active Problems Active Problems: All Active Problems (Updated 11/01/21 @ 12:51 by Carson Ozuna, [facility]) HTN (hypertension) (Acute) Screening for colon cancer (Acute) Dysuria (Acute) Lumbar back pain (Acute) Renal cyst (Acute) Renal calculi (Acute) Painful urination (Acute) Anxiety (Acute) Physical exam (Acute) Allergies (Acute) Dermatitis (Acute) Folliculitis (Acute) Sarcoidosis (Acute) Mediastinal adenopathy (Acute) Sleep disorder (Acute) Nasal fracture (Acute) Sleep apnea in adult (Acute) Past Medical History Medical History Kidney stones Mediastinal adenopathy Mediastinal lymphadenopathy Nasal fracture Pulmonary nodule Sarcoidosis Sarcoidosis Family History Family History Father Diabetes mellitus Stomach ulcer Mother Diabetes mellitus Brother No problems noted. Brother Substance use disorder Sister No problems noted. Sister No problems noted. Sister No problems noted. Surgical History Surgical History History of lithotripsy History of umbilical hernia repair History of Problems with Anesthesia: No Social History Social History Housing: House Alcohol intake: never Patient Tobacco Use Status: Former Tobacco user Quit Date: age 23 e-Cigarette/Vaping Use: Never Used Use of substances other than those prescribed or required for medical reasons: No Are you DNR?: No Advance Directives: No Advance Directives Information Provided: Yes Current occupational status: employed Cognitive needs: No Hearing needs: No Vision needs: No Meds Allergies Allergy/AdvReac Type Severity Reaction Status Date / Time morphine [MORPHINE] AdvReac Intermediate NAUSEA & Verified 11/04/21 11:16 VOMITING, Vomiting, nausea Home Medications Medication Instructions Recorded Confirmed Last Taken Type pyridoxine (vitamin B6) 100 mg 100 mg PO DAILY 05/26/20 11/01/21 Unknown History tablet flu vac qs 2018(4 yr up)CD(PF) ml IM 08/18/20 11/01/21 Unknown History hepatitis A virus vaccine (PF) 50 ml IM ONCE 08/18/20 11/01/21 Unknown History unit/mL intramuscular syringe fexofenadine 60 mg tablet (Purnima 60 mg PO BID 12/08/20 11/01/21 Unknown History Allergy) antiarthritic combination no.2 900 mg PO 08/02/21 11/01/21 Unknown History mg tablet (glucosamine-chondroitin) Exam Exam Date and Time: November 15, 202121 Height,Weight and Vital Signs: Height 5 ft 9 in Weight 81.647 kg Last Vital Signs Temp 97.2 F 11/15/21 06:45 Pulse 54 11/15/21 06:45 Resp 18 11/15/21 06:45 BP 119/81 11/15/21 06:45 Pulse Ox 99 11/15/21 06:45 Airway Mallampati Class: II TM Dist: >3cm Neck ROM: Full Loose/Missing/Broken Teeth: No Heart: RRR Lungs: CTA Assessment and Plan Assessment Anesthesia Assessment: Anesthesia Plan Discussed and Chart Reviewed Final Anesthetic Review History of Problems with Anesthesia: No NPO: Yes ASA Class: II Final Preanesthetic Review: Meds/Allgs Chart Reviewed, Consent Obtained/Reviewed and Anes Risks/Benef Reviewed Patient Risk: Low Procedure Risk: Intermediate Anesthetic Plan Anesthetic Plan: GA Disposition: Standard PACU
[2021-11-15] MEDS: Scopolamine 1.5 MG PATCH.TD.3 TRANSDERMA (07:38)
[2021-11-15] MEDS: Lactated Ringers 1,000 ML 50 ML IVCONT (07:38)
--- NOTE | 2021-11-15 08:14 | MHC.SHP ---
Pre-Procedural Eval Section A Date of Service: 11/15/21 The patient is an INPATIENT: No Changes since office visit: No Cold of Flu in the past 2 weeks, No New Medical Problems, No Changes in Medication and No Patient answered all questions The History & Physical has been completed within 30 days and I have reviewed it.: Yes Section B Chief Complaint: Cyst of kidney, acquired Allergies: Allergies Allergy/AdvReac Type Severity Reaction Status Date / Time morphine [MORPHINE] AdvReac Intermediate NAUSEA & Verified 11/04/21 11:16 VOMITING, Vomiting, nausea Review of Systems Sugical H&P ROS: Negative: Constitution, Cardiovascular, Respiratory, Neurological, Psychiatric, Hem-Onc, Allergic/Immunologic, Gastrointestinal, Genitourinary, Musculoskeletal, Integumentary, Endocrine and Eyes/Ears/Nose/Throat Exam Surgical H&P Exam: Normal: HEENT, Normal: Heart, Normal: Lungs, Normal: Extremities, Normal: Abdomen, Normal: Skin and Normal: Neurological Plan Diagnosis/Plan: Unchanged ( laparoscopic renal cyst unroofing) I have reviewed the history and physical and performed a pertinent physical examination on my patient. No changes have occurred unless specified.
[2021-11-15] MEDS: fentaNYL citrate/PF 100 MCG/2 ML VIAL 50 MCG IVPUSH ×4 (10:28→10:59)
[2021-11-15] MEDS: oxyCODONE HCl Immed Release 5 MG TABLET 10 MG PO (10:28)
--- NOTE | 2021-11-15 10:45 | W.PM.OPN ---
Operative Note Operative Note Date of Service: 11/15/21 Narrative: PreOperative Diagnosis: Large left upper pole renal cyst Post Operative Diagnosis: large left upper pole renal cyst Procedure: laparoscopic left renal cyst decortication Surgeon: Dr Jewel Reyes Anesthesia: general Indications for procedure: large left renal cyst abutting spleen altering anatomy with gastric pressure. Has been experiencing bloating and gastric fullness after small meals. Had undergone drainage of cyst with significant improvement in symptoms. The cyst recurred within 6-8 weeks and symptoms returned. Recommendation for laparoscopic cyst decortication with unroofing. Procedure: After informed consent was verified the patient was brought to the operating room and placed in a supine position. Anesthesia was administered per protocol. Raphael catheter placed. The patient pressed in a left lateral down position. Bottom leg bent top leg straight. Bed was broken to angle. Patient was secured with 2 in tape of hip region. Arms were padded with pillows and tape used to secure arms of the shoulders. General was used to hold patient in 30 degree lateral position with left side down. Patient was then prepped and draped in a sterile fashion. Safety pause time-out performed. Antibiotics have been given. Imaging was available within the room and had been reviewed for location of large left upper pole renal cyst. Veress needle was placed mid point between the umbilicus and superior iliac spine. Click felt. Drop test performed. No aspiration. Insufflation was performed without difficulty. 10 mm port was then placed at this location without difficulty. Under observation we could see a small supraumbilical hernia had been repaired with mesh. A 2nd 10 mm port was placed in the midline above the umbilical mesh without difficulty. A 5 mm port was then placed in the midclavicular line 2 fingerbreadths under the costal margin. With Port placement secure dissection was performed. Using a fenestrated grasper and Harmonic scalpel the line of Toldt was incised from below the kidney up over the kidney and the bowel was medialized approximately 2/[address] the kidney to midline. Dissection was not taken around the hilum. It was continued superiorly and the splenorenal ligaments were taken freeing the spleen in allowing this to be medialized. This exposed the large cyst in the left upper pole. a drainage needle was then used to penetrate the cyst and suction to try to deflate the cyst. We had some difficulty with this and a small window was opened into the cyst so that the sucker could be placed and cyst fluid could be drained from the cyst in its entirety. This allowed the cyst wall to collapse which showed us the boundaries Of the kidney. The using the Harmonic scalpel was then used to remove free cyst wall from its attachments around the age of the kidney. The cyst wall pieces were handed off as specimen. After this dissection and resection was complete a piece of Surgicel was placed into the cyst defect. This since the bowel had not been fully mobilized decision was made not to attach this to the lateral sidewall. The 10 mm ports were then removed under visualization and a suture closure device was used in order to close the fascia using a 0 Vicryl. This was used on both 10 mm ports. The 5 mm port was then used to desufflate the abdomen and removed. All ports had skin approximated using an interrupted 2-0 Vicryl suture and skin closure using a 4-0 Monocryl. Incisions were cleaned and closed using glue and a dressing placed using Steri-Strips. The patient was then returned to a supine position. The Raphael catheter was removed. The patient was extubated and transferred in stable condition to the recovery area. Pathology: renal cyst wall Drains: none
[2021-11-15] MEDS: Acetaminophen 325 MG TABLET 650 MG PO (12:25)
[2021-11-15] MEDS: traMADoL HCL 50 MG TABLET 100 MG PO (13:21)
--- NOTE | 2021-11-15 14:19 | PC.NURSE ---
PATIENT WAS ASSESSED BY DR. HAYES AFTER HE REPORTED PAIN/DISCOMFORT 9/10 ABDOMINAL AREA POST SURGERY. PATIENT WAS GIVE TRAMADOL 100 MG PO PER ORDER AND REASSESSED BY DR. HAYES 30 MINUTES LATER. PATIENT DISCHARGED HOME.
--- NOTE | 2021-11-15 14:23 | PC.NURSE ---
VITAL SIGNS PRIOR TO DISCHARGE; 167/91, p 64, 97% RA AT 1350.
== END 2021-11-15 14:22 | disposition home or self-care (01) ==
PROVIDERS: PCP Nurse Practitioner Family; Visit Provider Urology
PROC: (CPT 50541; principal; 2021-11-15 08:10)
DX: N28.1 Cyst of kidney, acquired (principal); Z87.442 Personal history of urinary calculi; R91.1 Solitary pulmonary nodule; R59.0 Localized enlarged lymph nodes; D86.9 Sarcoidosis, unspecified; Z79.899 Other long term (current) drug therapy; Z88.8 Allergy status to other drugs, medicaments and biological substances; Z98.890 Other specified postprocedural states; Z87.891 Personal history of nicotine dependence
CPT/HCPCS: 50541; 88304; 88305; J0690; J1100; J2250; J2405; J2550; J3010

== ENCOUNTER → 2021-11-30 09:47 | Outpatient (BNVA) | payer OTHER, SELFPAY | PROVIDERS: PCP Nurse Practitioner Family; Visit Provider Urology | DX: N20.0 Calculus of kidney (principal) ==

== ENCOUNTER 2022-04-20 15:44 | Outpatient (REF) | payer OTHER, SELFPAY ==
--- NOTE | ~2022-04-20 | US_ITS ---
EXAMINATION: US RETROPERITONEAL LIMITED (RENAL ONLY) CLINICAL INFORMATION: Calculus of kidney. COMPARISON: CT abdomen without contrast 09/21/2021. Ultrasound retroperitoneal limited (renal only) 08/02/2021 and 02/10/2021. X-ray abdomen KUB 12/23/2015 and 12/16/2015. TECHNIQUE: Real-time imaging of the kidneys. FINDINGS: RIGHT KIDNEY: 10.8 x 6.3 x 4.7 cm (SAG x AP x TRV). The kidney is normal in size, contour, and echogenicity. Renal cortical thickness is normal. No hydronephrosis. There are multiple anechoic cysts. A lower pole cyst measures 1.7 x 0.92 x 1.0 cm. Midpole cyst measures 3.7 x 3.4 x 3.0 cm, 0.9 x 0.7 x 1.0 cm, 0.91 x 0.7 x 0.64 cm and 0.63 x 0.65 x 0.9 seen. There are a few echogenic nonobstructive calculi, upper pole measuring 0.3 x 0.36 x 0.34 cm and and midpole measuring 0.16 x 0.18 x 0.23 cm. LEFT KIDNEY: 10.0 x 4.3 x 5.0 cm (SAG x AP x TRV). The kidney is normal in size, contour, and echogenicity. Renal cortical thickness is normal. No hydronephrosis. There is anechoic cysts in the lower pole measuring 2.0 x 1.7 x 1.9 cm, midpole measuring 2.5 x 1.7 x 1.8 cm and upper pole measuring 1.9 x 2.0 x 2.0 cm and 0.82 x 0.80 x 0.76 cm. There are echogenic stones in lower pole measuring 0.30 x 0.30 x 0.33 cm and midpole measuring 0.24 x 0.19 x 0.38 cm. US/US renal BI IMPRESSION: Bilateral nonobstructive echogenic renal calculi. No hydronephrosis. There are bilateral renal cysts.
== END 2022-04-20 15:45 | disposition home or self-care (01) ==
LOC: HO.HMGCX 15:44
PROVIDERS: PCP Nurse Practitioner Family; Visit Provider Urology
DX: N20.0 Calculus of kidney (principal)
CPT/HCPCS: 76775

== ENCOUNTER 2022-06-23 10:52 | Outpatient (REF) | payer OTHER, SELFPAY ==
--- NOTE | ~2022-06-23 | XR_ITS ---
EXAMINATION: XR CALCANEUS, RIGHT CLINICAL INFORMATION: Pain right foot COMPARISON: None TECHNIQUE: Lateral and axial views of the right calcaneus were obtained. FINDINGS: There is a small calcaneal heel enthesophyte. The ankle mortise and subtalar joints are normal. No visible acute fracture, dislocation or subluxation seen. XR/XR calcaneus RT min 2V IMPRESSION: Small calcaneal heel enthesophyte. No visible acute fracture or dislocation seen.
[2022-06-23 13:53] LABS: MANUAL DIFF FLAG NO
[2022-06-23 13:55] LABS: Basophils Percent Auto 0.5 % (0-2); Eosinophils Absolute Auto 0.7 X10*3/uL (0.0-0.4); Eosinophils Percent Auto 11.5 % (0-4); Hematocrit 41.4 % (42.0-52.0); Hemoglobin 14.3 g/dl (14.0-18.0); Imm Gran Abs Auto 0.03 X10*3/uL (0.00-0.03); Imm Gran Pct Auto 0.5 % (0.0-0.4); Lymphocytes Absolute Auto 1.5 X10*3/uL (1.2-4.9); Lymphocytes Percent Auto 24.9 % (20-40); Mean Corpuscular HGB Conc 34.5 g/dl (31.0-36.0); Mean Corpuscular Hemoglobin 31.1 pg (27.0-33.0); Mean Platelet Volume 10.2 fL (9.4-12.4); Monocytes Absolute Auto 0.7 X10*3/uL (0.1-1.2); Monocytes Percent Auto 12.4 % (2-11); Neutrophils Absolute Auto 2.9 x10*3/uL (2.0-8.3); Neutrophils Percent Auto 50.2 % (45-73); Platelet Count 233 X10*3/uL (160-400); Red Cell Distribution Width 12.1 % (11.0-16.0); White Blood Count 5.8 X10*3/uL (4.8-10.8)
[2022-06-23 13:56] LABS: Appearance Urine Clear; Color Urine Yellow; Glucose Urine UA Negative (Negative); Leukocyte Esterase Urine Negative (Negative); Nitrite Urine Negative (Negative); Urine Blood Negative (Negative); Urine Ketones Negative (Negative); Urine Protein Negative (Neg-Trace)
[2022-06-23 15:23] LABS: Alanine Aminotransferase 36 U/L (0-40); Albumin Level 4.3 g/dL (3.5-5.0); Alkaline Phosphatase 81 U/L (39-117); Anion Gap 10 (12-20); Aspartate Amino Transferase 28 U/L (5-37); Bilirubin Total 0.5 mg/dL (0.0-1.0); Blood Urea Nitrogen 16 mg/dL (9-16); Calcium 9.6 mg/dL (8.4-10.2); Carbon Dioxide 25 mmol/L (22-29); Chloride 106 mmol/L (96-108); Cholesterol 148 mg/dL; Estimated Glomerular Filt Rate > 60; Glucose Fasting 88 mg/dL (60-99); Glucose Random 88 mg/dL (60-115); HDL Cholesterol 46 mg/dL; LDL Cholesterol Calculated 86 mg/dl; Potassium 4.1 mmol/L (3.3-5.1); Sodium 137 mmol/L (135-145); TSH reflex Free T4 1.06 uIU/mL (0.32-4.0); Total Protein 7.5 g/dL (6.5-8.0); Triglycerides 83 mg/dL
== END 2022-06-23 10:53 | disposition home or self-care (01) ==
LOC: HO.HMGCX 10:52
PROVIDERS: PCP Nurse Practitioner Family; Visit Provider Nurse Practitioner Family
DX: R03.0 Elevated blood-pressure reading, without diagnosis of hypertension (principal); N28.1 Cyst of kidney, acquired; M79.671 Pain in right foot
CPT/HCPCS: 36415; 73650; 80053; 80061; 81003; 84443; 85025

== ENCOUNTER 2022-10-03 07:20 | Emergency (ER) | payer OTHER, SELFPAY ==
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
--- NOTE | ~2022-10-03 | XR_ITS ---
EXAMINATION: XR CHEST CLINICAL INFORMATION: Chest pain COMPARISON: Chest Ct 09/08/21 TECHNIQUE: Frontal view of the chest was obtained. FINDINGS: No significant abnormality is noted involving the heart, lungs, mediastinum, bony thorax or soft tissues. XR/XR chest 1V IMPRESSION: Unremarkable examination.
--- NOTE | 2022-10-03 07:22 | ECG_ITS ---
Test Reason : CHEST PAIN Blood Pressure : / mmHG Vent. Rate : 060 BPM Atrial Rate : 060 BPM P-R Int : 152 ms QRS Dur : 080 ms QT Int : 420 ms P-R-T Axes : 069 020 -18 degrees QTc Int : 420 ms Artifct in tracing Normal sinus rhythm T wave abnormality, consider inferior ischemia Abnormal ECG No previous ECGs available Referred By: Generic ED Physician Electronically Signed By:PAUL TRIPLETT
[2022-10-03 07:29] VITALS: BP 131/84; PULSE 63; RESP 18; TEMP 36.6; O2SAT 99; BMI 25.8
--- NOTE | 2022-10-03 07:36 | ECG_ITS ---
Test Reason : repeat /chest pain Blood Pressure : / mmHG Vent. Rate : 060 BPM Atrial Rate : 060 BPM P-R Int : 144 ms QRS Dur : 078 ms QT Int : 420 ms P-R-T Axes : 070 031 -08 degrees QTc Int : 420 ms Normal sinus rhythm T wave abnormality, consider inferior ischemia Abnormal ECG When compared with ECG of 03-OCT-2022 07:24, No significant change was found Referred By: Karly Gloria Electronically Signed By:PAUL TRIPLETT
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
[2022-10-03 07:58] LABS: MANUAL DIFF FLAG NO
[2022-10-03 07:59] LABS: Basophils Percent Auto 0.6 % (0-2); Eosinophils Absolute Auto 0.7 X10*3/uL (0.0-0.4); Eosinophils Percent Auto 13.9 % (0-4); Hemoglobin 16.6 g/dl (14.0-18.0); Imm Gran Abs Auto 0.03 X10*3/uL (0.00-0.03); Imm Gran Pct Auto 0.6 % (0.0-0.4); Lymphocytes Absolute Auto 2.3 X10*3/uL (1.2-4.9); Lymphocytes Percent Auto 45.6 % (20-40); Mean Corpuscular HGB Conc 34.6 g/dl (31.0-36.0); Mean Corpuscular Hemoglobin 31.3 pg (27.0-33.0); Mean Corpuscular Volume 90.6 fL (80.0-98.0); Monocytes Absolute Auto 0.5 X10*3/uL (0.1-1.2); Monocytes Percent Auto 10.6 % (2-11); Neutrophils Absolute Auto 1.5 x10*3/uL (2.0-8.3); Neutrophils Percent Auto 28.7 % (45-73); Platelet Count 221 X10*3/uL (160-400); Red Cell Distribution Width 11.9 % (11.0-16.0); White Blood Count 5.1 X10*3/uL (4.8-10.8)
[2022-10-03 08:10] LABS: Prothrombin Time 11.7 SEC (10.0-13.1)
[2022-10-03 08:13] LABS: Alanine Aminotransferase 28 U/L (0-40); Albumin Level 4.6 g/dL (3.5-5.0); Alkaline Phosphatase 72 U/L (39-117); Anion Gap 13 (12-20); Aspartate Amino Transferase 24 U/L (5-37); Bilirubin Total 1.1 mg/dL (0.0-1.0); Blood Urea Nitrogen 16 mg/dL (9-16); Calcium 9.8 mg/dL (8.4-10.2); Carbon Dioxide 25 mmol/L (22-29); Chloride 105 mmol/L (96-108); Creatinine Clr Calc Pharmacy 93.3; Estimated Glomerular Filt Rate > 60; Glucose Random 95 mg/dL (60-115); Potassium 4.4 mmol/L (3.3-5.1); Sodium 139 mmol/L (135-145); Total Protein 7.8 g/dL (6.5-8.0)
[2022-10-03 08:21] LABS: COVID-19 Test Negative (Negative); IDNOW Serial# BCCEAD1C
[2022-10-03 08:22] LABS: Troponin-I High Sensitivity < 3.5 ng/L (<3.5-35.0)
[2022-10-03] MEDS: iohexoL 350 MG/ML 100 ML INFUS..BTL 65 ML IV (09:20)
== END 2022-10-03 10:56 | disposition home or self-care (01) ==
PROVIDERS: Emergency Provider Student in an Organized Health Care Education/Training Program; PCP Nurse Practitioner Family
DX: R07.89 Other chest pain (principal); F41.1 Generalized anxiety disorder; F43.0 Acute stress reaction; R06.02 Shortness of breath; M54.6 Pain in thoracic spine; Z20.822 Contact with and (suspected) exposure to COVID-19; Z20.828 Contact with and (suspected) exposure to other viral communicable diseases; Z79.899 Other long term (current) drug therapy; Z87.891 Personal history of nicotine dependence
CPT/HCPCS: 36415; 71045; 71260; 80053; 84484; 85025; 85610; 87635; 93005; 99283; 99284; Q9967

== ENCOUNTER → 2022-10-05 14:53 | Outpatient (BNVA) | payer OTHER, SELFPAY | PROVIDERS: PCP Nurse Practitioner Family; Visit Provider Internal Medicine | DX: Z13.89 Encounter for screening for other disorder (principal) ==

== ENCOUNTER 2023-01-17 08:14 | Outpatient (REF) | payer OTHER, SELFPAY ==
[2023-01-17 11:20] LABS: MANUAL DIFF FLAG NO
[2023-01-17 11:36] LABS: Basophils Percent Auto 0.5 % (0-2); Eosinophils Absolute Auto 0.7 X10*3/uL (0.0-0.4); Eosinophils Percent Auto 12.8 % (0-4); Hematocrit 45.3 % (42.0-52.0); Hemoglobin 15.5 g/dl (14.0-18.0); Imm Gran Abs Auto 0.08 X10*3/uL (0.00-0.03); Imm Gran Pct Auto 1.4 % (0.0-0.4); Lymphocytes Absolute Auto 2.3 X10*3/uL (1.2-4.9); Lymphocytes Percent Auto 40.9 % (20-40); Mean Corpuscular HGB Conc 34.2 g/dl (31.0-36.0); Mean Corpuscular Hemoglobin 31.3 pg (27.0-33.0); Mean Corpuscular Volume 91.5 fL (80.0-98.0); Monocytes Absolute Auto 0.6 X10*3/uL (0.1-1.2); Neutrophils Absolute Auto 1.8 x10*3/uL (2.0-8.3); Neutrophils Percent Auto 33.4 % (45-73); Platelet Count 223 X10*3/uL (160-400); Red Blood Count 4.95 X10*6/uL (4.60-5.80); Red Cell Distribution Width 12.3 % (11.0-16.0); White Blood Count 5.5 X10*3/uL (4.8-10.8)
[2023-01-17 12:01] LABS: Alanine Aminotransferase 67 U/L (0-40); Albumin Level 4.6 g/dL (3.5-5.0); Alkaline Phosphatase 69 U/L (39-117); Anion Gap 16 (12-20); Aspartate Amino Transferase 47 U/L (5-37); Bilirubin Total 0.6 mg/dL (0.0-1.0); Blood Urea Nitrogen 15 mg/dL (9-16); Calcium 9.9 mg/dL (8.4-10.2); Carbon Dioxide 23 mmol/L (22-29); Chloride 104 mmol/L (96-108); Estimated Glomerular Filt Rate > 60; Glucose Random 95 mg/dL (60-115); Sodium 139 mmol/L (135-145); Total Protein 8.4 g/dL (6.5-8.0); Uric Acid 7.7 mg/dL (3.4-7.0)
== END 2023-01-17 08:15 | disposition home or self-care (01) ==
LOC: HO.HMGCLDS 08:14
PROVIDERS: PCP Nurse Practitioner Family; Visit Provider Nurse Practitioner Family
DX: M10.9 Gout, unspecified (principal)
CPT/HCPCS: 36415; 80053; 84550; 85025

== ENCOUNTER 2023-02-06 08:04 | Outpatient (REF) | payer OTHER, SELFPAY ==
--- NOTE | ~2023-02-06 | US_ITS ---
EXAMINATION: US ABDOMEN COMPLETE CLINICAL INFORMATION: Abnormal levels of other serum enzymes. COMPARISON: Renal ultrasound 04/20/2022 and 08/02/2021. CT abdomen 09/21/2021. X-ray KUB 12/23/2015 and 12/16/2015. TECHNIQUE: Real-time imaging of the abdominal viscera. FINDINGS: PANCREAS: Limited. The visualized pancreatic head and body are normal in appearance. The remainder of the pancreas is obscured from visualization by the overlying bowel gas. ABDOMINAL AORTA: The proximal, mid, and distal segments are normal in caliber. INFERIOR VENA CAVA: Visualized portions are normal. LIVER: The liver is normal in size. The liver contour is normal. There is diffuse increased liver parenchymal echogenicity. No focal hepatic lesion. There is no intrahepatic biliary duct dilatation seen. GALLBLADDER: Normal. The gallbladder is physiologically distended without evidence of stones, sludge, polyps, wall thickening or pericholecystic fluid. COMMON BILE DUCT: Normal in caliber measuring 0.4 cm in diameter. RIGHT KIDNEY: At the upper pole, a 1.2 cm benign, simple cyst is seen. At the interpolar aspect, a 3.6 cm and 1.3 cm benign, simple cysts are seen. At the lower pole, 1.9 cm and 0.8 cm benign, simple cysts are seen. These require no imaging follow-up. There are echogenic foci which do not formal criteria for calculi. No definite calculus is appreciated. No hydronephrosis The kidney measures 12.2 cm in maximum dimension. LEFT KIDNEY: At the upper pole, 3.5 cm and 1.2 cm in maximal diameter benign, simple cysts are seen. At the interpolar aspect, 9 mm and 8 mm benign, simple cysts are seen. At the lower pole, a 2.1 cm maximal diameter benign, simple cyst is seen. These require no imaging follow-up. At the lower pole, a 5 mm nonobstructing calculus is seen, with twinkle artifact. No hydronephrosis. The kidney measures 11.2 cm in maximum dimension. SPLEEN: Normal. The spleen measures 13.2 cm in maximum dimension. FREE FLUID: None. US/US abdomen complete IMPRESSION: 1. There is generalized increase in hepatic echotexture, consistent with fatty infiltration or hepatocellular disease. Please correlate clinically. No focal hepatic mass or intrahepatic biliary dilatation is seen. 2. A 5 mm nonobstructing right renal lower pole calculus is seen. 3. Technically limited ultrasound examination of the pancreatic tail.
== END 2023-02-06 08:05 | disposition home or self-care (01) ==
LOC: HO.US 08:04
PROVIDERS: PCP Nurse Practitioner Family; Visit Provider Nurse Practitioner Family
DX: R74.8 Abnormal levels of other serum enzymes (principal)
CPT/HCPCS: 76700

== ENCOUNTER 2023-03-30 07:05 | Outpatient (REF) | payer OTHER, SELFPAY ==
--- NOTE | ~2023-03-30 | XR_ITS ---
EXAMINATION: XR ABDOMEN KUB CLINICAL INDICATION: Renal cyst. COMPARISON: Most recent abdominal ultrasound dated 02/06/2023. TECHNIQUE: AP views of the abdomen. FINDINGS: Left lower pole renal stones measuring 0.2 and 0.2 cm. No definite right-sided renal stone. Nonobstructive bowel gas pattern. Mild air and stool throughout the colon. No acute osseous abnormality. XR/XR KUB IMPRESSION: 1. Left lower pole renal stones measuring 0.2 and 0.2 cm. 2. No definite right-sided renal stone.
[2023-03-30 07:34] LABS: Appearance Urine Clear; Color Urine Yellow; Glucose Urine UA Negative (Negative); Leukocyte Esterase Urine Trace (Negative); Nitrite Urine Negative (Negative); PH 5.5 (5.0-9.0); Specific Gravity - Urine 1.015 (1.005-1.025); UMIC TRIGGER UACC YES; Urine Blood Trace (Negative); Urine Ketones Trace mg/dL (Negative); Urine Protein Negative (Neg-Trace)
[2023-03-30 07:42] LABS: Bacteria Urine None Seen (None Seen); Hyaline Casts Urine 0-2 /LPF (0-2); RBC Urine 0-2 /HPF (0-2); Squamous Epithelial Cell Urine 0-2 /HPF (0-2); WBC Urine 0-5 /HPF (0-5)
== END 2023-03-30 07:06 | disposition home or self-care (01) ==
LOC: HO.XRAY 07:05
PROVIDERS: PCP Nurse Practitioner Family; Visit Provider Urology
DX: N28.1 Cyst of kidney, acquired (principal); N20.0 Calculus of kidney; R30.0 Dysuria
CPT/HCPCS: 74018; 81001

== ENCOUNTER 2023-05-04 10:15 | Outpatient (AMB) | payer OTHER, SELFPAY ==
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
[2023-05-04 10:23] VITALS: BP 120/78; PULSE 66; O2SAT 98; BMI 26.7
== END 2023-05-04 10:51 | disposition home or self-care (01) ==
PROVIDERS: Visit Provider Nurse Practitioner Family
DX: Z12.11 Encounter for screening for malignant neoplasm of colon (principal); Z00.00 Encounter for general adult medical examination without abnormal findings
CPT/HCPCS: 99396

== ENCOUNTER 2023-05-15 07:39 | Outpatient (REF) | payer OTHER, SELFPAY ==
--- NOTE | ~2023-05-15 | US_ITS ---
EXAMINATION: US RETROPERITONEAL LIMITED (RENAL ONLY) CLINICAL INFORMATION: Calculus of kidney. COMPARISON: Ultrasound abdomen complete 02/06/2023. TECHNIQUE: Real-time imaging of the kidneys. FINDINGS: RIGHT KIDNEY: 11.2 x 5.6 x 5.7 cm (SAG x AP x TRV). The kidney is normal in size, contour, and echogenicity. Renal cortical thickness is normal. No hydronephrosis. Benign-appearing renal cysts measuring up to 3.6 cm. No follow-up imaging is recommended. Nonobstructing stones measuring up to 6 mm in the lower pole, previously 5 mm. LEFT KIDNEY: 10.7 x 4.9 x 5.2 cm (SAG x AP x TRV). The kidney is normal in size, contour, and echogenicity. Renal cortical thickness is normal. No hydronephrosis. Benign-appearing renal cysts measuring up to 3.3 cm. No follow-up imaging is recommended. Nonobstructing stones measuring up to 4 mm in the lower pole, previously 5 mm which appear increased in number with respect to prior. US/US renal BI IMPRESSION: Bilateral nonobstructing renal stones measuring up to 6 mm in the right lower pole and 4 mm mm in the left lower pole which on the left appear increased in number with respect to prior.
== END 2023-05-15 07:40 | disposition home or self-care (01) ==
LOC: HO.US 07:39
PROVIDERS: PCP Nurse Practitioner Family; Visit Provider Urology
DX: N20.0 Calculus of kidney (principal)
CPT/HCPCS: 76775

== ENCOUNTER 2023-05-30 11:54 | Outpatient (AMB) | payer OTHER, SELFPAY ==
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
== END 2023-05-30 13:00 | disposition home or self-care (01) ==
PROVIDERS: Visit Provider Urology
DX: N20.0 Calculus of kidney (principal); N28.1 Cyst of kidney, acquired
CPT/HCPCS: 99213

== ENCOUNTER → 2023-05-30 11:54 | Outpatient (BNVA) | payer OTHER, SELFPAY | PROVIDERS: Visit Provider Urology ==

== ENCOUNTER 2023-10-10 15:45 | Outpatient (AMB) | payer OTHER, SELFPAY ==
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
[2023-10-10 15:56] VITALS: BP 104/67; PULSE 66; O2SAT 98; BMI 29.0
== END 2023-10-10 16:04 | disposition home or self-care (01) ==
PROVIDERS: PCP Nurse Practitioner Family; Visit Provider Internal Medicine
DX: J30.9 Allergic rhinitis, unspecified (principal); D86.9 Sarcoidosis, unspecified; R59.0 Localized enlarged lymph nodes
CPT/HCPCS: 99213

== ENCOUNTER → 2023-10-10 15:45 | Outpatient (BNVA) | payer OTHER, SELFPAY | PROVIDERS: PCP Nurse Practitioner Family; Visit Provider Internal Medicine ==

== ENCOUNTER 2023-10-31 12:32 | Outpatient (AMB) | payer OTHER, SELFPAY ==
[2023-10-31 12:34] VITALS: BP 122/82; PULSE 78; TEMP 36.6; O2SAT 97; BMI 28.2
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
== END 2023-10-31 16:19 | disposition home or self-care (01) ==
PROVIDERS: PCP Nurse Practitioner Family; Visit Provider Nurse Practitioner Family
DX: M10.9 Gout, unspecified (principal)
CPT/HCPCS: 99213

== ENCOUNTER 2023-10-31 15:26 | Outpatient (AMB) | payer OTHER, SELFPAY ==
[2023-10-31 15:31] VITALS: BP 124/68; PULSE 77; BMI 28.0
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
== END 2023-10-31 16:22 | disposition home or self-care (01) ==
PROVIDERS: PCP Nurse Practitioner Family; Visit Provider Nurse Practitioner Family
DX: R74.8 Abnormal levels of other serum enzymes (principal); Z12.11 Encounter for screening for malignant neoplasm of colon; K21.9 Gastro-esophageal reflux disease without esophagitis
CPT/HCPCS: 99203

== ENCOUNTER → 2023-10-31 15:26 | Outpatient (BNVA) | payer OTHER, SELFPAY | PROVIDERS: PCP Nurse Practitioner Family; Visit Provider Nurse Practitioner Family ==

== ENCOUNTER 2024-02-05 09:31 | Outpatient (REF) | payer BC, SELFPAY ==
[2024-02-05 09:48] LABS: MANUAL DIFF FLAG NO
[2024-02-05 09:57] LABS: Basophils Percent Auto 0.7 % (0-2); Eosinophils Absolute Auto 0.8 X10*3/uL (0.0-0.4); Eosinophils Percent Auto 13.6 % (0-4); Hematocrit 45.5 % (42.0-52.0); Hemoglobin 15.6 g/dl (14.0-18.0); Imm Gran Abs Auto 0.09 X10*3/uL (0.00-0.03); Imm Gran Pct Auto 1.5 % (0.0-0.4); Lymphocytes Absolute Auto 2.7 X10*3/uL (1.2-4.9); Lymphocytes Percent Auto 45.1 % (20-40); Mean Corpuscular HGB Conc 34.3 g/dl (31.0-36.0); Mean Corpuscular Hemoglobin 31.6 pg (27.0-33.0); Mean Corpuscular Volume 92.1 fL (80.0-98.0); Mean Platelet Volume 9.2 fL (9.4-12.4); Monocytes Absolute Auto 0.6 X10*3/uL (0.1-1.2); Monocytes Percent Auto 10.2 % (2-11); Neutrophils Absolute Auto 1.7 x10*3/uL (2.0-8.3); Neutrophils Percent Auto 28.9 % (45-73); Platelet Count 222 X10*3/uL (160-400); Red Blood Count 4.94 X10*6/uL (4.60-5.80); Red Cell Distribution Width 12.6 % (11.0-16.0); White Blood Count 5.9 X10*3/uL (4.8-10.8)
[2024-02-05 10:37] LABS: Alanine Aminotransferase 53 U/L (0-40); Albumin Level 4.4 g/dL (3.5-5.0); Alkaline Phosphatase 64 U/L (39-117); Anion Gap 11 (12-20); Aspartate Amino Transferase 31 U/L (5-37); Bilirubin Total 0.9 mg/dL (0.0-1.0); Blood Urea Nitrogen 18 mg/dL (9-16); Calcium 9.8 mg/dL (8.4-10.2); Carbon Dioxide 27 mmol/L (22-29); Chloride 107 mmol/L (96-108); Cholesterol 192 mg/dL (<200); Estimated Glomerular Filt Rate > 60; Glucose Fasting 96 mg/dL (60-99); Glucose Random 96 mg/dL (60-115); Potassium 4.5 mmol/L (3.3-5.1); Sodium 140 mmol/L (135-145); Total Protein 7.8 g/dL (6.5-8.0); Triglycerides 108 mg/dL (<150); Uric Acid 6.6 mg/dL (3.4-7.0)
[2024-02-05 10:46] LABS: Appearance Urine Clear; Color Urine Yellow; Glucose Urine UA Negative (Negative); Leukocyte Esterase Urine Negative (Negative); Nitrite Urine Negative (Negative); Urine Blood Negative (Negative); Urine Ketones Negative (Negative); Urine Protein Negative (Neg-Trace)
[2024-02-05 11:02] LABS: HDL Cholesterol 60 mg/dL (>40); LDL Cholesterol Calculated 111 mg/dL (<100)
== END 2024-02-05 09:32 | disposition home or self-care (01) ==
LOC: HO.LAB 09:31
PROVIDERS: PCP Nurse Practitioner Family; Visit Provider Nurse Practitioner Family
DX: Z00.00 Encounter for general adult medical examination without abnormal findings (principal); M10.9 Gout, unspecified
CPT/HCPCS: 36415; 80053; 80061; 81003; 84443; 84550; 85025

== ENCOUNTER 2024-02-08 07:23 | Outpatient (REF) | payer BC, SELFPAY ==
--- NOTE | ~2024-02-08 | CT_ITS ---
EXAMINATION: CT CHEST WITHOUT CONTRAST CLINICAL INFORMATION: Sarcoidosis COMPARISON: 10/03/2022 TECHNIQUE: Multidetector volumetric CT imaging of the chest was done. Axial MIP volume rendering provided. Sagittal and coronal reformatted images were obtained. This CT examination was performed using dose optimization techniques as appropriate, variously including the following: *Automated exposure control *Adjustment of mA and/or kV according to patient size (this includes techniques or standardized protocols for targeted exams where dose is matched to indication/reason for exam; i.e. extremities or head) *Use of iterative reconstruction technique DLP: 184 mGy-cm FINDINGS: LUNGS: Central airways are patent. Left upper lobe scarring, similar to prior study. No new or enlarging pulmonary nodule. Central airways are patent. PLEURA: No pleural effusion. MEDIASTINUM: No cardiomegaly. Aorta and pulmonary artery are normal in caliber. No mediastinal adenopathy. Lack of IV contrast limits evaluation for hilar adenopathy. CORONARY ARTERY CALCIFICATION: No coronary artery calcification appreciated. CHEST WALL/AXILLA: No axillary or internal mammary lymphadenopathy. UPPER ABDOMEN: Partially visualized benign-appearing left renal cyst. OSSEOUS STRUCTURES: Unremarkable. CT/CT chest wo IV con IMPRESSION: Left upper lobe scarring, similar to prior study. No new or enlarging pulmonary nodule. Electronically signed by: Arely Chauhan MD 03/18/2024 06:57 PM EDT
== END 2024-02-08 07:24 | disposition home or self-care (01) ==
LOC: HO.CT 07:23
PROVIDERS: PCP Nurse Practitioner Family; Visit Provider Internal Medicine
DX: D86.9 Sarcoidosis, unspecified (principal); R59.0 Localized enlarged lymph nodes
CPT/HCPCS: 71250

== ENCOUNTER 2024-03-19 07:18 | Day surgery (SDC) | payer BC, SELFPAY ==
[2024-03-18 07:20] VITALS: BMI 27.9
[2024-03-19 07:49] VITALS: BP 123/84; PULSE 61; RESP 20; TEMP 36.9; O2SAT 97; BMI 28.1
[2024-03-19] MEDS: Lactated Ringers 1,000 ML 100 ML IVCONT (08:08)
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
--- NOTE | 2024-03-19 09:21 | HO.OPN-COLON ---
Colonoscopy Operative Note Operative Note Date of Service: 03/19/24 Narrative: Operative Information Procedure Description: EGD, Colonoscopy Indication: GERD, screening Anesthesia: MAC FLEXIBLE TRANSORAL UPPER GASTROINTESTINAL ENDOSCOPY AND COLONOSCOPY PROCEDURE NOTE UPPER ENDOSCOPY Consent: Indications for the procedure and potential complications of bleeding, perforation, reaction to medications and missed diagnosis were discussed with the patient and informed consent was obtained. Instrument: Olympus GIF H 190 J mid size upper endoscope Monitoring: Vital signs and clinical assessment, continuous EKG monitoring, Pulse oximetry, Carbon Dioxide monitoring and blood pressure monitoring were done throughout the procedure. Procedure: The patient was placed in the left lateral decubitis position and pre-procedure medications were administered and a bite block was placed. The endoscope was inserted into the mouth and advanced under direct vision to the third part of duodenum. A careful inspection was made as the upper endoscope was withdrawn including a retroflexed examination of the proximal stomach; Findings and interventions are described below. Findings: Larynx:normal Esophagus: GE junction at 41 cm, diaphragm hiatus at 41 cm, irregular z line with mild esophagitis, bx taken Stomach: Patchy erythema. Biopsies were obtained. Grade 2 flap valve on retroflexed examination of the cardia. Duodenum: Normal bulb and descending duodenum, Intervention: Biopsies as noted above, COLONOSCOPY Instrument: Olympus variable stiffness pediatric scope 190L Colonoscopy Monitoring: Vital signs and clinical assessment, continuous EKG monitoring, Pulse oximetry, Carbon Dioxide monitoring and blood pressure monitoring were done throughout the procedure. Colon withdrawal time was 10 minutes. Procedure: The patient was placed in the left lateral decubitis position and pre-procedure medications were administered. After a digital rectal examination of the ano-rectum, the video colonoscope was inserted into the rectum and advanced through the colon to the cecum/TI. The colonoscope was slowly withdrawn in a retrograde panoramic fashion and the colon mucosa was carefully examined including a retroflexed view of the rectum. Findings and interventions are described below. Procedure Difficulty:moderate Findings: Terminal Ileum-normal Cecum:normal Ascending Colon: mild diverticulosis Transverse Colon -normal Descending Colon:normal Sigmoid Colon: moderate diverticulosis Rectum: Retroflexion with small internal hemorrhoids, grade I Anorectum - normal Colon preparation: [place] Bowel Preparation Scale Right colon; 2 Transverse colon: 3 Left colon; 3 (0 = Unprepared colon segment with mucosa not seen due to solid stool that cannot be cleared. 1 = Portion of mucosa of the colon segment seen, but other areas of the colon segment not well seen due to staining, residual stool and/or opaque liquid. 2 = Minor amount of residual staining, small fragments of stool and/or opaque liquid, but mucosa of colon segment seen well. 3 = Entire mucosa of colon segment seen well with no residual staining, small fragments of stool or opaque liquid) Impression and Post Procedure Diagnosis: Endoscopy Findings: mild esophagitis gastritis Colonoscopy Findings: diverticulosis internal hemorrhoids Plan: Await Pathology results Repeat Colonoscopy in 10 years or earlier if clinically indicated High fiber diet leaflet avoid straining at stool, epsom salts and sitz bath, anusol supps or cream if h pylori pos then treat Above findings were reviewed with the patient and relevant handouts were provided if indicated.
[2024-03-19 09:26] VITALS: BP 106/67; PULSE 59; RESP 16; TEMP 36.1; O2SAT 16
[2024-03-19 09:41] VITALS: BP 115/76; PULSE 49; RESP 17; O2SAT 95
[2024-03-19 09:58] VITALS: BP 128/90; PULSE 55; RESP 17; TEMP 36.2; O2SAT 96
== END 2024-03-19 10:16 | disposition home or self-care (01) ==
PROVIDERS: PCP Nurse Practitioner Family; Visit Provider Internal Medicine Gastroenterology
PROC: (CPT 45378; principal; 2024-03-19 08:50)
DX: Z12.11 Encounter for screening for malignant neoplasm of colon (principal); K57.30 Diverticulosis of large intestine without perforation or abscess without bleeding; K64.0 First degree hemorrhoids; K21.9 Gastro-esophageal reflux disease without esophagitis; K29.60 Other gastritis without bleeding; K20.80 Other esophagitis without bleeding; K22.89 Other specified disease of esophagus; K44.9 Diaphragmatic hernia without obstruction or gangrene; D86.9 Sarcoidosis, unspecified; R59.1 Generalized enlarged lymph nodes; R91.1 Solitary pulmonary nodule; J30.9 Allergic rhinitis, unspecified; Z79.899 Other long term (current) drug therapy; Z88.5 Allergy status to narcotic agent; Z98.890 Other specified postprocedural states; Z87.442 Personal history of urinary calculi; Z87.891 Personal history of nicotine dependence
CPT/HCPCS: 45378; 43239; 88305; 88313; 88342; J1596; J2704

== ENCOUNTER → 2024-03-19 07:18 | Outpatient (BNV) | payer BC, SELFPAY | PROVIDERS: PCP Nurse Practitioner Family; Visit Provider Internal Medicine Gastroenterology | DX: Z12.11 Encounter for screening for malignant neoplasm of colon (principal); K57.90 Diverticulosis of intestine, part unspecified, without perforation or abscess without bleeding; K64.0 First degree hemorrhoids; K21.00 Gastro-esophageal reflux disease with esophagitis, without bleeding; K29.70 Gastritis, unspecified, without bleeding | CPT/HCPCS: 43239; 45378 ==

== ENCOUNTER 2024-04-02 07:53 | Outpatient (AMB) | payer BC, SELFPAY ==
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
[2024-04-02 08:04] VITALS: BP 110/74; PULSE 62; O2SAT 98; BMI 27.8
== END 2024-04-02 09:03 | disposition home or self-care (01) ==
PROVIDERS: PCP Nurse Practitioner Family; Visit Provider Nurse Practitioner Family
DX: K21.9 Gastro-esophageal reflux disease without esophagitis (principal); K57.90 Diverticulosis of intestine, part unspecified, without perforation or abscess without bleeding; Z98.890 Other specified postprocedural states
CPT/HCPCS: 99213

== ENCOUNTER → 2024-04-02 07:53 | Outpatient (BNVA) | payer BC, SELFPAY | PROVIDERS: PCP Nurse Practitioner Family; Visit Provider Nurse Practitioner Family ==

== ENCOUNTER 2024-05-23 07:26 | Outpatient (AMB) | payer BC, SELFPAY ==
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
[2024-05-23 07:43] VITALS: BP 106/80; PULSE 60; O2SAT 98; BMI 28.2
== END 2024-05-23 08:32 | disposition home or self-care (01) ==
PROVIDERS: PCP Nurse Practitioner Family; Visit Provider Nurse Practitioner Family
DX: Z12.5 Encounter for screening for malignant neoplasm of prostate (principal); Z00.00 Encounter for general adult medical examination without abnormal findings; R42 Dizziness and giddiness

== ENCOUNTER → 2024-05-23 07:26 | Outpatient (BNVA) | payer BC, SELFPAY | PROVIDERS: PCP Nurse Practitioner Family; Visit Provider Nurse Practitioner Family | DX: Z00.00 Encounter for general adult medical examination without abnormal findings (principal); R42 Dizziness and giddiness | CPT/HCPCS: 96127 ==

== ENCOUNTER 2024-07-08 09:18 | Outpatient (AMB) | payer BC, SELFPAY ==
[2024-07-08 09:19] VITALS: BP 120/76; PULSE 56; O2SAT 96; BMI 28.8
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
== END 2024-07-08 09:45 | disposition home or self-care (01) ==
PROVIDERS: PCP Nurse Practitioner Family; Visit Provider Nurse Practitioner Family
DX: K21.9 Gastro-esophageal reflux disease without esophagitis (principal); K57.90 Diverticulosis of intestine, part unspecified, without perforation or abscess without bleeding
CPT/HCPCS: 99213

== ENCOUNTER 2024-08-12 09:26 | Outpatient (REF) | payer BC, SELFPAY ==
[2024-08-12 09:42] LABS: MANUAL DIFF FLAG NO
[2024-08-12 10:37] LABS: Basophils Percent Auto 0.4 % (0-2); Eosinophils Absolute Auto 0.7 X10*3/uL (0.0-0.4); Eosinophils Percent Auto 13.7 % (0-4); Hematocrit 44.9 % (42.0-52.0); Imm Gran Abs Auto 0.02 X10*3/uL (0.00-0.03); Imm Gran Pct Auto 0.4 % (0.0-0.4); Lymphocytes Absolute Auto 2.3 X10*3/uL (1.2-4.9); Mean Corpuscular HGB Conc 35.6 g/dl (31.0-36.0); Mean Corpuscular Volume 89.8 fL (80.0-98.0); Mean Platelet Volume 9.7 fL (9.4-12.4); Monocytes Absolute Auto 0.5 X10*3/uL (0.1-1.2); Monocytes Percent Auto 8.8 % (2-11); Neutrophils Absolute Auto 1.7 x10*3/uL (2.0-8.3); Neutrophils Percent Auto 32.7 % (45-73); Platelet Count 221 X10*3/uL (160-400); Red Cell Distribution Width 11.9 % (11.0-16.0); White Blood Count 5.1 X10*3/uL (4.8-10.8)
[2024-08-12 10:56] LABS: Appearance Urine Clear; Color Urine Yellow; Glucose Urine UA Negative (Negative); Leukocyte Esterase Urine Negative (Negative); Nitrite Urine Negative (Negative); PH 5.5 (5.0-9.0); Urine Blood Negative (Negative); Urine Ketones Negative (Negative); Urine Protein Negative (Neg-Trace)
[2024-08-12 12:56] LABS: Prostate Specific Antigen Scr 0.43 ng/mL (<0.05-4.0)
[2024-08-12 13:08] LABS: TSH reflex Free T4 1.49 uIU/mL (0.32-4.0)
[2024-08-12 13:15] LABS: Cholesterol 191 mg/dL (<200); HDL Cholesterol 50 mg/dL (>40); LDL Cholesterol Calculated 126 mg/dL (<100); Triglycerides 75 mg/dL (<150)
== END 2024-08-12 09:27 | disposition home or self-care (01) ==
LOC: HO.LAB 09:26
PROVIDERS: PCP Nurse Practitioner Family; Visit Provider Nurse Practitioner Family
DX: M10.9 Gout, unspecified (principal); Z12.5 Encounter for screening for malignant neoplasm of prostate
CPT/HCPCS: 36415; 80061; 81003; 84153; 84443; 85025

== ENCOUNTER 2024-10-17 08:32 | Outpatient (AMB) | payer BC, SELFPAY ==
[2024-10-17 08:45] VITALS: BP 110/82; PULSE 70; RESP 18; TEMP 36.6; O2SAT 98; BMI 26.0
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
--- OUTSIDE RECORDS SUMMARY | 2024-10-17 08:47 | XMS_ITS | Patient Health Record ---
Author Organization [facility] Joyce brit NegreteC[place] Address [address] [facility] [place] [address] Care Team Providers Care Client Executive Name Role Phone Carson Knight Primary Care Provider Unav ailable Taryn Griffith Unavailable [phone] Allergies Allergen (clinical drug ingredient) Drug/Non Drug Allergy documented on EMR Reaction Allergy Type Onset Date Status morphine Morphine nausea Drug Allergy Active Reason For Referral No Information Medications Medication SIG (Take, Route, Frequency, Duration) Notes Start Date End Date Status Vitamin B6 Active Metoprolol Succinate ER 25 MG TAKE 1/2 TABLET BY MOUTH DAILY Oral for 90 Active Glucosamine Active Potassium Citrate ER 10 MEQ (1080 MG) TAKE 2 TABLETS BY MOUTH TWICE DAILY Oral for 90 Active Omeprazole 20 MG Oral for 30 A ctive Ibuprofen 800 MG 1 tablet Orally Thre e times a day for 7 days 10/11/2022 Active Social History Tobacco Use: Social History Observation Description Date Details (start date - stop date) Former Smoker NA - NA Tobacco Use/Smoking Question Answer Notes Are you a: former smoker Additional Findings: Tobacco Non-User Current no n-smoker Alcohol Screen Question Answer Notes Did you have a drink contain ing alcohol in the past year? Yes How often did you have a dri nk containing alcohol in the past year? Monthly or less (1 point) Points 1 Interpretation Negative Tobacco use other than smoking: Question Answer Notes Are you an other tobacco user? No Plan Of Treatment Pending Test Test Name Order Date X ray : Foot, left 3V 10/11/2022 X ray : Foot, right 3V 10/11/2022 X ray : Foot, right 3V 07/13/2022 [id number] TENDON SHEATH/LIGAMENT 0 07/13/2022 Insurance Providers Payer Name Payer Address Payer Phone Subscriber Number Group Number Insured Name Patient Relationship to Insured Coverage Start Date Coverage End Date [facility] [address] [place] [address] [phone] [id number] Sudheer Castillo Self - patient is the insured Medical (General) History Medical History History ICD Code Kidney stones Adenopathy Lymphadenopathy Pulmonary Nodules Sarcoidosis Anxiety Back,Hip,and Knee pain Broken bones covid-19 High blood pressure Kidney disease Lung disease Gout Surgical History Surgery Date(Month/Year) Hernia Repair 2016 lithotripsy [phone] kidney cyst surgery 2021
== END 2024-10-17 10:31 | disposition home or self-care (01) ==
LOC: HO.HMCC 08:33
PROVIDERS: PCP Nurse Practitioner Family; Visit Provider Nurse Practitioner Family
DX: R42 Dizziness and giddiness (principal)

== ENCOUNTER → 2024-10-17 08:32 | Outpatient (BNVA) | payer BC, SELFPAY | PROVIDERS: PCP Nurse Practitioner Family; Visit Provider Nurse Practitioner Family | DX: R42 Dizziness and giddiness (principal) | CPT/HCPCS: 96127 ==

== ENCOUNTER 2024-12-04 07:48 | Outpatient (AMB) | payer BC, SELFPAY ==
--- OUTSIDE RECORDS SUMMARY | 2024-12-04 07:50 | XMS_ITS | Patient Health Record ---
Author Organization [facility] Joyce brit Negrete[place]ag[place] Address [address] [facility] [place] [address] Care Team Providers Care Gandy Dancer Name Role Phone Carson Knight Primary Care Provider Unav ailable Taryn Griffith Unavailable [phone] Allergies Allergen (clinical drug ingredient) Drug/Non Drug [...] X ray : Foot, right 3V 07/13/2022 [id number] TENDON SHEATH/LIGAMENT 0 07/13/2022 Insurance Providers Payer Name Payer Address Payer Phone Subscriber Number Group Number Insured Name Patient Relationship to Insured Coverage Start Date Coverage End Date [facility] [address] [place] [address] [phone] [id number] Sudheer Castillo Self - patient is the insured Medical (General) History Medical History History ICD Code Kidney stones Adenopathy Lymphadenopathy Pulmonary Nodules Sarcoidosis Anxiety Back,Hip,and Knee pain Broken bones covid-19 High blood pressure Kidney disease Lung disease Gout Surgical History Surgery Date(Month/Year) Hernia Repair 2016 lithotripsy [phone] kidney cyst surgery 2021
[2024-12-04 07:55] VITALS: BP 112/80; PULSE 59; RESP 15; TEMP 37; O2SAT 97; BMI 27.3
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
== END 2024-12-04 08:47 | disposition home or self-care (01) ==
LOC: HO.HMCC 07:48
PROVIDERS: PCP Nurse Practitioner Family; Visit Provider Nurse Practitioner Family
DX: M10.9 Gout, unspecified (principal); I10 Essential (primary) hypertension

== ENCOUNTER → 2024-12-04 07:48 | Outpatient (BNVA) | payer BC, SELFPAY | PROVIDERS: PCP Nurse Practitioner Family; Visit Provider Nurse Practitioner Family | DX: Z13.89 Encounter for screening for other disorder (principal) ==

== ENCOUNTER 2025-01-08 09:30 | Outpatient (RCR) | payer BC, SELFPAY ==
[2025-01-03 08:06] VITALS: BP 113/77; PULSE 59
--- NOTE | 2025-01-03 08:55 | MHC.PT.EP ---
[facility] [place] Office [place] Office [place] Office [address] Eric Chin [address] [phone] F: [phone] F: [phone] F: [phone] F: [phone] Physical Therapy Plan of Care Date of Evaluation: 01/03/25 Date of Surgery: NA Diagnosis: Dizziness and giddiness Assessment: Sudheer is a 49 year old male who is referred to PT for dizziness and giddiness . He reports of having symptoms of vertigo for about 1 year. He describes these symptoms as room spinning which is present with rolling in bed, bending over and supine to sit. He denies any nausea or vomiting. On PT examination he presented with intact saccades, intact visual tracking, negative head thrust, intact smooth pursuit and negative VBI. He was positive for L PC BPPV. He lives with his partner and is independent with ADLS but does them carefully due to dizziness. 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 He would benefit from skilled PT to address the aforementioned impairments and improve tolerance to functional activities. Frequency and Duration: The patient will be seen 2/week for 4 weeks Short Term Goals: Mcfp Goals: Patient to be educated on symptoms and indications to return to therapy when needed min 4 weeks. Pt will be negative for nystagmus or reports of vertigo in all diagnostic positions bilaterally to resolution of BPPV in 4 weeks. Patient to be able to functionally move in all planes and directions without provocation of dizziness to show return to PLOF in 4 weeks. Treatment Plan: Modalities to reduce pain, spasms and effusion. Manual therapy to restore motion and function. Therapeutic exercise to improve strength and flexibility. Neuromuscular re-education for posture and balance. Therapeutic activities to return to functional activities of daily living. Electronically signed by: Janina Luu PT DPT Please sign and return to therapist. Thank you for your referral.
--- NOTE | 2025-02-12 14:35 | MHC.PT.DC ---
[facility] [place] Office [place] Office [place] Office [address] Eric Chin [address] [facility] [phone] F: [phone] F: [phone] F: [phone] F: [phone] Physical Therapy Discharge Report Diagnosis: Dizziness and giddiness Date of Surgery: NA Date of Evaluation: 01/03/25 Date of Discharge: 02/12/25 Treatments to Date: 2 Cancellations to Date: 0 No Shows to Date: 0 Discharge Status: Achieved Goals Discharge Summary: Sudheer has not had any symptoms of vestibular hypofunction in over a month. She is therefore being d/c from PT. Electronically signed by: Janina Luu PT DPT Please sign and return to therapist. Thank you for your referral.
== END 2025-02-12 14:35 | disposition home or self-care (01) ==
LOC: HO.PT 09:30
PROVIDERS: PCP Nurse Practitioner Family; Visit Provider Nurse Practitioner Family
DX: H81.4 Vertigo of central origin (principal)
CPT/HCPCS: 95992; 97112; 97161

== ENCOUNTER 2025-06-30 09:50 | Outpatient (REF) | payer BC, SELFPAY ==
[2025-06-30 14:26] LABS: Resp Syncy Virus RNA Qual PCR NEGATIVE (Negative); SARS COV2 PCR INHOUSE POSITIVE (Negative)
--- OUTSIDE RECORDS SUMMARY | 2025-06-30 14:33 | XMS_ITS | Patient Health Record ---
Author Organization [facility] brit NegreteDavid Address [address] [place] [address] Care Team Providers Care Culinary Art Teacher Name Role Phone Carson Knight Primary Care Provider Unav ailable Taryn Griffith Unavailable [phone] Allergies Allergen (clinical drug ingredient) Drug/Non Drug Allergy documented on EMR Reaction Allergy Type Onset Date Status morphine Morphine nausea Drug Allergy Active Reason For Referral No Information Medications Medication SIG (Take, Route, Frequency, Duration) Notes Start Date End Date Status Vitamin B6 Active Metoprolol Succinate ER 25 MG TAKE 1/2 TABLET BY MOUTH DAILY Oral; Duration: 90 Active Glucosamine Active Potassium Citrate ER 10 MEQ (1080 MG) TAKE 2 TABLETS BY MOUTH TWICE DAILY Oral; Duration: 90 Active Omeprazole 20 MG Oral; Duration: 30 Active Ibuprofen 800 MG 1 tablet Orally Thre e times a day; Duration: 7 days 10/11/2022 Active Social History Tobacco [...] X ray : Foot, right 3V 07/13/2022 [id number] TENDON SHEATH/LIGAMENT 0 07/13/2022 Insurance Providers Payer Name Payer Address Payer Phone Subscriber Number Group Number Insured Name Patient Relationship to Insured Coverage Start Date Coverage End Date [facility] [address] [place] [address] [id number] Sudheer Castillo Self - patient is the insured Medical (General) History Medical History History ICD Code Kidney stones Adenopathy Lymphadenopathy Pulmonary Nodules Sarcoidosis Anxiety Back,Hip,and Knee pain Broken bones covid-19 High blood pressure Kidney disease Lung disease Gout Surgical History Surgery Date(Month/Year) Hernia Repair 2016 lithotripsy [id number] kidney cyst surgery 2021
== END 2025-06-30 09:51 | disposition home or self-care (01) ==
LOC: HO.LAB 09:50
PROVIDERS: Nurse Practitioner Family; PCP Nurse Practitioner Family
DX: R09.89 Other specified symptoms and signs involving the circulatory and respiratory systems (principal); J06.9 Acute upper respiratory infection, unspecified; Z87.891 Personal history of nicotine dependence
CPT/HCPCS: 87637

== ENCOUNTER 2025-06-30 09:50 | Outpatient (AMB) | payer BC, SELFPAY ==
[2025-06-30 10:44] VITALS: BP 132/82; PULSE 65; TEMP 36.8; O2SAT 97; BMI 28.1
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
== END 2025-06-30 11:27 | disposition home or self-care (01) ==
PROVIDERS: PCP Nurse Practitioner Family; Visit Provider Nurse Practitioner Family
DX: J06.9 Acute upper respiratory infection, unspecified (principal)